=== PATIENT | female | born 1930 | race Caucasian/White ===

== ENCOUNTER 2016-09-23 20:47 | Inpatient (IN) | payer OTHER ==
[2016-09-23 21:09] VITALS: BMI 22.8
--- NOTE | 2016-09-23 21:23 | PDOC ---
History of Present Illness - General History Source: Patient Exam Limitations: No Limitations - History of Present Illness Initial Comments: 09/23/16 22:19 The patient is an 86 year old female with no significant past medical history, presenting to the Emergency Department after falling at home just prior to arrival. She reports that she was at home cleaning when she tripped over a rug and fell on her left leg. She reports left leg pain, especially at her knee. She admits that she is not able to put weight on the left leg due to pain. She denies popping or clicking in her knee during the fall. She denies swelling of the knee, and denies numbness or tingling. She denies loss of consciousness or any other injury. She denies taking any medication for the pain. The patient denies neck pain, or back pain. Patient denies headache, dizziness, or blurry vision. Patient denies nausea, vomiting, and diarrhea. Patient denies fever, chills, or cough. Past Medical Hx: hydronephrosis s/p ureteral stent <oPppy Davalos - Last Filed: 09/24/16 01:38> <Maura Love - Last Filed: 09/24/16 03:29> - General Chief Complaint: Injury Stated Complaint: FALL Time Seen by Provider: 09/23/16 21:06 Past History <Poppy Davalos - Last Filed: 09/24/16 01:38> - Past Medical History Anemia: No Asthma: No Cancer: No Cardiac Disorders: No CVA: No COPD: No CHF: No Dementia: No Diabetes: No GI Disorders: No Disorders: Yes ("UNABLE TO EMPTY BLADDER FULLY") HTN: No Hypercholesterolemia: No Liver Disease: No Seizures: No Thyroid Disease: No - Surgical History Neurologic Surgery: No - Psycho/Social/Smoking Cessation Hx Suicidal Ideation: No Smoking History: Never smoked Have you smoked in the past 12 months: No If you are a former smoker, when did you quit?: 30 YRS AGO Information on smoking cessation initiated: No Hx Alcohol Use: No Drug/Substance Use Hx: No Substance Use Type: None Hx Substance Use Treatment: No <Maura Love - Last Filed: 09/24/16 03:29> - Past Medical History Allergies/Adverse Reactions: Allergies Allergy/AdvReac Type Severity Reaction Status Date / Time No Known Allergies Allergy Verified 08/27/14 06:43 Home Medications: Ambulatory Orders Multivitamins [Multivit ([facility] Formulary)] 1 tab PO DAILY 08/26/14 Review of Systems - Review of Systems Able to Perform ROS?: Yes Comments:: 09/23/16 22:19 GENERAL/CONSTITUTIONAL: No fever or chills. No weakness. HEAD, EYES, EARS, NOSE AND THROAT: No change in vision. No ear pain or discharge. No sore throat. CARDIOVASCULAR: No chest pain or shortness of breath. RESPIRATORY: No cough, wheezing, or hemoptysis. GASTROINTESTINAL: No nausea, vomiting, diarrhea or constipation. GENITOURINARY: No dysuria, frequency, or change in urination. MUSCULOSKELETAL: + left leg pain, + left knee pain. No neck or back pain. SKIN: No rash NEUROLOGIC: No headache, vertigo, loss of consciousness, or change in strength/ sensation. ENDOCRINE: No increased thirst. No abnormal weight change. HEMATOLOGIC/LYMPHATIC: No anemia, easy bleeding, or history of blood clots. ALLERGIC/IMMUNOLOGIC: No hives or skin allergy. <Poppy Davalos - Last Filed: 09/24/16 01:38> *Physical Exam - Vital Signs Last Vital Signs Temp Pulse Resp BP Pulse Ox 151/68 96 09/23/16 21:01 09/23/16 21:01 - Physical Exam Comments: 09/23/16 22:20 GENERAL: Awake, alert, and fully oriented, in no acute distress HEAD: No signs of trauma EYES: PERRLA, EOMI, sclera anicteric, conjunctiva clear ENT: Auricles normal inspection, hearing grossly normal, nares patent, oropharynx clear without exudates. Moist mucosa NECK: Normal ROM, supple, no lymphadenopathy, JVD, or masses LUNGS: Breath sounds equal, clear to auscultation bilaterally. No wheezes, and no crackles HEART: Regular rate and rhythm, normal S1 and S2, no murmurs, rubs or gallops ABDOMEN: Soft, nontender, normoactive bowel sounds. No guarding, no rebound. No masses EXTREMITIES: Redness over left tibial plateau, no swelling. Normal range of motion, no edema. No clubbing or cyanosis. No cords NEUROLOGICAL: Cranial nerves II through XII grossly intact. Normal speech, normal gait SKIN: Warm, Dry, normal turgor, no rashes or lesions noted. <Poppy Davalos - Last Filed: 09/24/16 01:38> - Vital Signs Last Vital Signs Temp Pulse Resp BP Pulse Ox 151/68 96 09/23/16 21:01 09/23/16 21:01 <Maura Love - Last Filed: 09/24/16 03:29> ED Treatment Course - RADIOLOGY Radiology Studies Ordered: 09/23/16 23:13 Left Knee XRay As reviewed by Dr. Rashid English IMPRESSION: Questionable nondisplaced oblique tibial fracture can be further evaluated with CT 09/24/16 01:39 CT left lef As reviewed by Dr. Rashid English IMPRESSION: Nondisplaced and nondepressed oblique fracture of the proximal tibia with intra-articular extension <Poppy Davalos - Last Filed: 09/24/16 01:38> - LABORATORY CBC & Chemistry Diagram: 09/24/16 02:24 09/24/16 02:24 <Maura Love - Last Filed: 09/24/16 03:29> Medical Decision Making - Medical Decision Making 09/23/16 23:13 Patient Name: Belinda Lynch THIS IS A PRELIMINARYREPORT FROM [employer] [employer] COMPENSATION ANALYST EXAM: X-ray left knee IMAGES: 3 INDICATION: Status post fall DATE OF SERVICE: 2016-09-23 21:43:54.0 COMPARISON: none FINDINGS: Small joint effusion is noted. There may be a central oblique nondepressed tibial fracture. Calcification adjacent to the femoral condyle may be due to old MCL injury. Crescentic calcification posterior to the condyle the lateral view may be due to old trauma as well. IMPRESSION: Questionable nondisplaced oblique tibial fracture can be further evaluated with CT THIS DOCUMENT HAS BEEN ELECTRONICALLY SIGNED 09/24/16 01:39 Patient Name: Belinda Lynch THIS IS A PRELIMINARYREPORT FROM [employer]AG[facility] [employer] COMPENSATION ANALYST EXAM: CT left lobes of the without contrast IMAGES: 486 INDICATION: Evaluate proximal tibia and tibial plateau DATE OF SERVICE: 2016-09-24 00:40: 11.0 COMPARISON: none FINDINGS: There is a nondisplaced oblique fracture of the medial proximal tibia extending from the tibial spines to the medial cortex of the proximal diaphysis. There is no depression of the tibial plateau. 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 Calcification adjacent to the medial femoral condyle may be due to old MCL injury. Small joint effusion is noted. IMPRESSION: Nondisplaced and nondepressed oblique fracture of the proximal tibia with intra-articular extension 09/24/16 01:54 Pt cannot bear weight. I tried walking with her. She will require admission. Knee immobilizer in place. 09/24/16 03:11 Pt's EKG is NSR. Labs are normal. 09/24/16 03:[address] Moreno; she will be admitted to the hospitalist service. <Maura Love - Last Filed: 09/24/16 03:29> *DC/Admit/Observation/Transfer - Attestations Scribe Attestion: 09/23/16 22:20 Documentation prepared by Poppy Davalos, acting as medical educator for Maura Love MD. <Poppy Davalos - Last Filed: 09/24/16 01:38> - Discharge Dispostion Admit: Yes <Maura Love - Last Filed: 09/24/16 03:29> Diagnosis at time of Disposition: Fracture of tibia, Inability to ambulate due to knee - Discharge Dispostion Condition at time of disposition: Guarded - Referrals Referrals: Kristina Moreno MD [Primary Care Provider] -
[2016-09-23] MEDS ORDERED: IBUPROFEN 600 MG TABLET (FP) PO ONE ×2 (23:14→23:18)
[2016-09-23] MEDS ORDERED: OXYCODONE/APAP 5/325MG COMBO TABLET PO ONE (23:14)
[2016-09-23] MEDS ORDERED: OXYCODONE/APAP 5/325MG COMBO TABLET ONE (23:18)
[2016-09-24 02:28] LABS: BASOPHIL 0.6 % (0-2.0); EOSINOPHIL 0.3 % (0-4.5); MCH 28.8 pg (25.7-33.7); MCHC 33.3 g/dl (32.0-36.0); MEAN CELL VOLUME 86.7 fl (80-96); MEAN PLT VOLUME 8.1 fl (7.5-11.1); NEUTROPHILS 75.3 % (42.8-82.8); PLATELET COUNT 229 K/MM3 (134-434); RDW 14.2 % (11.6-15.6); WHITE BLOOD COUNT 11.4 K/mm3 (4.0-10.0)
[2016-09-24 02:56] LABS: ALBUMIN 3.9 g/dl (3.4-5.0); ALK PHOS 85 U/L (45-117); ANION GAP 12 (8-16); BILIRUBIN,TOTAL 0.9 mg/dL (0.2-1.0); CALCIUM 8.5 mg/dL (8.5-10.1); CO2 22 mmol/L (21-32); CREATININE 0.8 mg/dL (0.55-1.02); GLUCOSE,RANDOM 114 mg/dL (74-106); SGOT/AST 18 U/L (15-37); SGPT/ALT 26 U/L (12-78); TOT PROT 6.7 g/dl (6.4-8.2)
--- NOTE | 2016-09-24 03:52 | HP ---
<Eldon Garcia - Last Filed: 09/24/16 04:38> CHIEF COMPLAINT: Left leg fracture PCP: Dr. Kristina Moreno HISTORY OF PRESENT ILLNESS: Patient is an 86 year old female with no significant past medical history, presented to the Emergency Department s/p mechanical fall at home just prior to arrival. She reported that she was at home cleaning when she tripped over a rug and fell on her left leg. She reported left leg pain, especially right below her left knee. She noted that she is unable to put weight on her left leg due to pain. She denied swelling of the knee, numbness or tingling. She denied hitting her head, loss of consciousness, or any other injury. She denied taking any medication for the pain. ER course was notable for: (1) CT of the left knee (2) Percocet Recent Travel: None reported PAST MEDICAL HISTORY: None reported PAST SURGICAL HISTORY: None reported Social History: Smoking: Former Smoker Alcohol: Denied Drugs: Denied Family History: Allergies No Known Allergies Allergy (Verified 08/27/14 06:43) HOME MEDICATIONS: Home Medications Medication Instructions Recorded Multivitamins [Multivit ([facility] 1 tab PO DAILY 08/26/14 Formulary)] REVIEW OF SYSTEMS CONSTITUTIONAL: Absent: fever, chills, diaphoresis, generalized weakness, malaise, loss of appetite, weight change HEENT: Absent: rhinorrhea, nasal congestion, throat pain, throat swelling, difficulty swallowing, mouth swelling, ear pain, eye pain, visual changes CARDIOVASCULAR: Absent: chest pain, syncope, palpitations, irregular heart rate, lightheadedness , peripheral edema RESPIRATORY: Absent: cough, shortness of breath, dyspnea with exertion, orthopnea, wheezing, stridor, hemoptysis GASTROINTESTINAL: Absent: abdominal pain, abdominal distension, nausea, vomiting, diarrhea, constipation, melena, hematochezia GENITOURINARY: Absent: dysuria, frequency, urgency, hesitancy, hematuria, flank pain, genital pain MUSCULOSKELETAL: Present: Left lower extremity pain Absent: back pain, neck pain SKIN: Absent: rash, itching, pallor HEMATOLOGIC/IMMUNOLOGIC: Absent: easy bleeding, easy bruising, lymphadenopathy, frequent infections ENDOCRINE: Absent: unexplained weight gain, unexplained weight loss, heat intolerance, cold intolerance NEUROLOGIC: Absent: headache, focal weakness or paresthesias, dizziness, unsteady gait, seizure, mental status changes, bladder or bowel incontinence PSYCHIATRIC: Absent: anxiety, depression, suicidal or homicidal ideation, hallucinations. PHYSICAL EXAMINATION GENERAL: Awake, alert, and fully oriented, in no acute distress. HEENT: Atraumatic. Moist mucosa. Normocephalic. No sinus tenderness. No LAD. NECK: No JVD. No thyroid masses. Supple. LUNGS: Clear to auscultation bilaterally. No wheezing, rhonchi or rales. HEART: Regular rate and rhythm, normal S1 and S2, (+) murmur, peripheral pulses normal and equal bilaterally. ABDOMEN: Soft, nontender, normoactive bowel sounds. No guarding, no rebound. No Masses. MUSCULOSKELETAL: No joint tenderness or erythema. No muscle tenderness. Normal muscle bulk and tone. EXTREMITIES: (+) Left lower extremity is immobilized. 2+ DP pulses bilaterally. SKIN: Warm, dry, normal turgor, no rashes or lesions noted. IMAGING CT Left lobes without contrast Impression: Nondisplaced and nondepressed oblique fracture of the proximal tibia with intra-articular extension ASSESSMENT/PLAN: 1. Left lower extremity nondisplaced and nondepressed oblique fracture of the proximal tibia with intra-articular extension. - Ortho consult in AM - Pain control - Left knee joint immobilization 2. DVT PPX low to moderate risk -Heparin 5000 units Q12H 3. Diet; normal diet Admit to observation. Documentation prepared by Eldon Garcia, acting as electromedical equipment technician for Dr. Grace MD. <Edward Edwards - Last Filed: 09/24/16 06:58> CHIEF COMPLAINT: PCP: HISTORY OF PRESENT ILLNESS: ER course was notable for: (1) (2) (3) Recent Travel: PAST MEDICAL HISTORY: PAST SURGICAL HISTORY: Social History: Smoking: Alcohol: Drugs: Family History: Allergies No Known Allergies Allergy (Verified 08/27/14 06:43) HOME MEDICATIONS: Home Medications Medication Instructions Recorded Multivitamins [Multivit ([facility] 1 tab PO DAILY 08/26/14 Formulary)] REVIEW OF SYSTEMS CONSTITUTIONAL: Absent: fever, chills, diaphoresis, generalized weakness, malaise, loss of appetite, weight change HEENT: Absent: rhinorrhea, nasal congestion, throat pain, throat swelling, difficulty swallowing, mouth swelling, ear pain, eye pain, visual changes CARDIOVASCULAR: Absent: chest pain, syncope, palpitations, irregular heart rate, lightheadedness , peripheral edema RESPIRATORY: Absent: cough, shortness of breath, dyspnea with exertion, orthopnea, wheezing, stridor, hemoptysis GASTROINTESTINAL: Absent: abdominal pain, abdominal distension, nausea, vomiting, diarrhea, constipation, melena, hematochezia GENITOURINARY: Absent: dysuria, frequency, urgency, hesitancy, hematuria, flank pain, genital pain MUSCULOSKELETAL: Absent: myalgia, arthralgia, joint swelling, back pain, neck pain SKIN: Absent: rash, itching, pallor HEMATOLOGIC/IMMUNOLOGIC: Absent: easy bleeding, easy bruising, lymphadenopathy, frequent infections ENDOCRINE: Absent: unexplained weight gain, unexplained weight loss, heat intolerance, cold intolerance NEUROLOGIC: Absent: headache, focal weakness or paresthesias, dizziness, unsteady gait, seizure, mental status changes, bladder or bowel incontinence PSYCHIATRIC: Absent: anxiety, depression, suicidal or homicidal ideation, hallucinations. PHYSICAL EXAMINATION GENERAL: Awake, alert, and fully oriented, in no acute distress. HEAD: Normal with no signs of trauma. EYES: Pupils equal, round and reactive to light, extraocular movements intact, sclera anicteric, conjunctiva clear. No lid lag. EARS, NOSE, THROAT: Ears normal, nares patent, oropharynx clear without exudates. Moist mucous membranes. NECK: Normal range of motion, supple without lymphadenopathy, JVD, or masses. LUNGS: Breath sounds equal, clear to auscultation bilaterally. No wheezes, and no crackles. No accessory muscle use. HEART: Regular rate and rhythm, normal S1 and S2 without murmur, rub or gallop. ABDOMEN: Soft, nontender, not distended, normoactive bowel sounds, no guarding, no rebound, no masses. No hepatomegaly or splenomegaly. MUSCULOSKELETAL: Normal range of motion at all joints. No bony deformities or tenderness. No CVA tenderness. UPPER EXTREMITIES: 2+ pulses, warm, well-perfused. No cyanosis. No clubbing. Cap refill <2 seconds. No peripheral edema. LOWER EXTREMITIES: 2+ pulses, warm, well-perfused. No calf tenderness. No peripheral edema. NEUROLOGICAL: Cranial nerves II-XII intact. Normal speech. Normal gait. PSYCHIATRIC: Cooperative. Good eye contact. Appropriate mood and affect. SKIN: Warm, dry, normal turgor, no rashes or lesions noted. ASSESSMENT/PLAN: Visit type - Emergency Visit Emergency Visit: Yes ED Registration Date: 09/24/16 Care time: The patient presented to the Emergency Department on the above date and was hospitalized for further evaluation of their emergent condition. - New Patient This patient is new to me today: Yes Date on this admission: 09/24/16 - Critical Care Critical Care patient: No
--- NOTE | 2016-09-24 09:48 | CON.ORTH ---
Consult Reason for Consultation:: left tibia fx - Alcohol/Substance Use Hx Alcohol Use: No - Smoking History Smoking history: Never smoked Have you smoked in the past 12 months: No If you are a former smoker, when did you quit?: 30 YRS AGO Home Medications - Allergies Allergies/Adverse Reactions: Allergies Allergy/AdvReac Type Severity Reaction Status Date / Time No Known Allergies Allergy Verified 08/27/14 06:43 - Home Medications Home Medications: Ambulatory Orders Multivitamins [Multivit ([facility] Formulary)] 1 tab PO DAILY 08/26/14 Physical Exam for Ortho Vital Signs: Vital Signs Temperature 98.5 F 09/24/16 07:47 Pulse Rate 68 09/24/16 07:47 Respiratory Rate 18 09/24/16 07:47 Blood Pressure 122/58 09/24/16 07:47 O2 Sat by Pulse Oximetry (%) 98 09/24/16 07:47 - Lower Extremity Knee: Yes: Left, Limited ROM, Pain, Swelling, Tenderness, Other (nvi) Imaging - Results X-ray: Report Reviewed, Image Reviewed Cat Scan: Report Reviewed, Image Reviewed Assessment/Plan 86 year old female with no significant past medical history, presented to the Emergency Department s/p mechanical fall at home just prior to arrival. She reported that she was at home cleaning when she tripped over a rug and fell on her left leg. She reported left leg pain, especially right below her left knee. She noted that she is unable to put weight on her left leg due to pain. She denied hitting her head, loss of consciousness, or any other injury. a/p- Left non-displaced medial tibial plateau fx No surgical tx necessary Knee immobilizer at all times NWB LLE Ice, elevate PT eval d/w Dr. Adams
--- NOTE | 2016-09-24 10:16 | PN ---
Progress Note, Physician - Current Medication List Current Medications: Active Medications Heparin Sodium (Porcine) (Heparin -) 5,000 unit SQ BID PAM Morphine Sulfate (Morphine Injection -) 2 mg IVPUSH Q6H PRN PRN Reason: PAIN - Objective Vital Signs: Vital Signs Temperature 98.5 F 09/24/16 07:47 Pulse Rate 68 09/24/16 07:47 Respiratory Rate 18 09/24/16 07:47 Blood Pressure 122/58 09/24/16 07:47 O2 Sat by Pulse Oximetry (%) 98 09/24/16 07:47 Constitutional: Yes: Well Nourished, No Distress, Calm Eyes: Yes: WNL, Conjunctiva Clear HENT: Yes: WNL, Atraumatic, Normocephalic Neck: Yes: WNL, Supple, Trachea Midline Cardiovascular: Yes: WNL, Regular Rate and Rhythm Respiratory: Yes: WNL, Regular, CTA Bilaterally Gastrointestinal: Yes: WNL, Normal Bowel Sounds Musculoskeletal: Yes: Other (knee immobilized) Extremities: Yes: WNL Edema: No Integumentary: Yes: WNL Neurological: Yes: WNL, Alert, Oriented ...Motor Strength: WNL Psychiatric: Yes: WNL Impression/Plan Impression/Plan: 86 year old woman with no past medical history admitted for fracture of tibial plateau -ortho consult greatly appreciated; agree that no surgical intervention is needed -recs are for knee immobilization -follow up physical therapy eval -pain control -heparin for DVT proph Visit type - Emergency Visit Emergency Visit: Yes ED Registration Date: 09/25/16 Care time: The patient presented to the Emergency Department on the above date and was hospitalized for further evaluation of their emergent condition. - New Patient This patient is new to me today: Yes Date on this admission: 09/25/16 - Critical Care Critical Care patient: No
[2016-09-24] MEDS ORDERED: HEPARIN NA (PORCINE) 5,000 UNITS/ML 1ML VIAL ONE (10:29)
[2016-09-24] MEDS: HEPARIN NA (PORCINE) 5,000 UNITS/ML 1ML VIAL SQ SCH ×2 (10:40→21:24)
[2016-09-24] MEDS ORDERED: morphine CARPU-JECT 2 MG/1 ML DISP.SYRIN ONE (15:36)
[2016-09-24] MEDS: morphine CARPU-JECT 2 MG/1 ML DISP.SYRIN IVPUSH PRN ×2 (15:40→22:54)
[2016-09-24] MEDS ORDERED: INFLUENZA VACCINE 45 MCG/0.5 ML (MDV 16-17) IM ONE (17:13)
--- NOTE | 2016-09-25 00:41 | EKG ---
Test Reason : Blood Pressure : / mmHG Vent. Rate : 075 BPM Atrial Rate : 075 BPM P-R Int : 146 ms QRS Dur : 082 ms QT Int : 404 ms P-R-T Axes : 067 036 041 degrees QTc Int : 451 ms NORMAL SINUS RHYTHM NONSPECIFIC ST ABNORMALITY ABNORMAL ECG NO PREVIOUS ECGS AVAILABLE Confirmed by KADE HUMPHREY MD ([id number]) on 09/25/2016 12:41:22 AM Referred By: Confirmed By:KADE HUMPHREY MD
[2016-09-25] MEDS ORDERED: ACETAMINOPHEN 500 MG TABLET (FP) PO PRN (05:51)
[2016-09-25 08:30] LABS: MCH 29.2 pg (25.7-33.7); MCHC 33.3 g/dl (32.0-36.0); MEAN CELL VOLUME 87.7 fl (80-96); MEAN PLT VOLUME 8.8 fl (7.5-11.1); PLATELET COUNT 180 K/MM3 (134-434); RDW 14.5 % (11.6-15.6)
[2016-09-25 09:43] LABS: CALCIUM 7.8 mg/dL (8.5-10.1); CREATININE 0.7 mg/dL (0.55-1.02)
[2016-09-25] MEDS: HEPARIN NA (PORCINE) 5,000 UNITS/ML 1ML VIAL SQ SCH ×2 (10:21→22:02)
--- NOTE | 2016-09-25 11:53 | PN ---
<Ivon Thomason - Last Filed: 09/25/16 11:41> Physical Exam: SUBJECTIVE: Patient seen and examined at bed side. patient feeling well, anxious to get up and walk to do daily activity. No CP, SOB, Fevers, chills, N/V/D. OBJECTIVE: Vital Signs Period Temp Pulse Resp BP Sys/Higgins Pulse Ox Last 24 Hr 97.9 F 60 20 107/40 GENERAL: The patient is awake, alert, and fully oriented, in no acute distress. HEAD: Normal with no signs of trauma. EYES: PERRL, extraocular movements intact, sclera anicteric, conjunctiva clear. No ptosis. ENT: Ears normal, nares patent, oropharynx clear without exudates, moist mucous membranes. NECK: Trachea midline, full range of motion, supple. LUNGS: Breath sounds equal, clear to auscultation bilaterally, no wheezes, no crackles, no accessory muscle use. HEART: Regular rate and rhythm, S1, S2 without murmur, rub or gallop. ABDOMEN: Soft, nontender, nondistended, normoactive bowel sounds, no guarding, no rebound, no hepatosplenomegaly, no masses. EXTREMITIES: 2+ pulses, warm, well-perfused, no edema. NEUROLOGICAL: Cranial nerves II through XII grossly intact. Normal speech, gait not observed. PSYCH: Normal mood, normal affect. SKIN: Warm, dry, normal turgor, no rashes or lesions noted Active Medications Generic Name Dose Route Start Last Admin Trade Name Freq PRN Reason Stop Dose Admin Acetaminophen 1,000 mg 09/25/16 05:51 09/25/16 06:41 Tylenol - PO 1,000 mg Q6H PRN Administration FEVER OR PAIN Heparin Sodium (Porcine) 5,000 unit 09/24/16 10:00 09/25/16 10:21 Heparin - SQ 5,000 unit BID PAM Administration Morphine Sulfate 2 mg 09/24/16 04:40 09/24/16 22:54 Morphine Injection - IVPUSH 2 mg Q6H PRN Administration PAIN ASSESSMENT/PLAN: 86 year old woman with no past medical history admitted for fracture of tibial plateau Left non-displaced medial tibial plateau fracture: -no surgical intervention is needed at this time. -knee immobilization at all time per Ortho -physical therapy eval -pain control -Ice, elevate -heparin for DVT proph FEN regular diet oral hydration replete electrolyte as needed. Despo: Awaiting social media marketer for subacute rehab placement. <Korey Leong - Last Filed: 09/25/16 16:08> Physical Exam: ATTENDING PHYSICIAN STATEMENT I saw and evaluated the patient. I reviewed the resident's note and discussed the case with the resident. I agree with the resident's findings and plan as documented. SUBJECTIVE: seen and evaluated at the bedside OBJECTIVE: left knee immobilized ASSESSMENT AND PLAN: 86 year old woman with no past medical history admitted for fracture of tibial plateau -ortho consult greatly appreciated; agree that no surgical intervention is needed -recs are for knee immobilization -follow up physical therapy eval -pain control -heparin for DVT proph Visit type - Emergency Visit Emergency Visit: Yes ED Registration Date: 09/25/16 Care time: The patient presented to the Emergency Department on the above date and was hospitalized for further evaluation of their emergent condition. - New Patient This patient is new to me today: No - Critical Care Critical Care patient: No - Discharge Referral Referred to [facility] Med [facility] No
[2016-09-25] MEDS: morphine CARPU-JECT 2 MG/1 ML DISP.SYRIN IVPUSH PRN (16:41)
[2016-09-26 08:24] LABS: MCH 29.8 pg (25.7-33.7); MCHC 33.8 g/dl (32.0-36.0); MEAN PLT VOLUME 8.8 fl (7.5-11.1); PLATELET COUNT 182 K/MM3 (134-434); WHITE BLOOD COUNT 8.3 K/mm3 (4.0-10.0)
[2016-09-26] MEDS: HEPARIN NA (PORCINE) 5,000 UNITS/ML 1ML VIAL SQ SCH ×2 (10:18→22:42)
[2016-09-26] MEDS ORDERED: OXYCODONE/APAP 5/325MG COMBO TABLET PO PRN (12:19)
--- NOTE | 2016-09-26 13:31 | DS ---
Physical Exam: SUBJECTIVE: Patient seen and examined OBJECTIVE: Vital Signs Period Temp Pulse Resp BP Sys/Higgins Pulse Ox Last 24 Hr 97.9 F-98.8 F 73-82 16-20 112-133/53-72 96 PHYSICAL EXAM GENERAL: The patient is awake, alert, and fully oriented, in no acute distress. HEAD: Normal with no signs of trauma. EYES: PERRL, extraocular movements intact, sclera anicteric, conjunctiva clear. ENT: Ears normal, nares patent, oropharynx clear without exudates, moist mucous membranes. NECK: Trachea midline, full range of motion, supple. LUNGS: Breath sounds equal, clear to auscultation bilaterally, no wheezes, no crackles, no accessory muscle use. HEART: Regular rate and rhythm, S1, S2 without murmur, rub or gallop. ABDOMEN: Soft, nontender, nondistended, normoactive bowel sounds, no guarding, no rebound, no hepatosplenomegaly, no masses. EXTREMITIES: 2+ pulses, warm, well-perfused, no edema. NEUROLOGICAL: Cranial nerves II through XII grossly intact. Normal speech, gait not observed. PSYCH: Normal mood, normal affect. SKIN: Warm, dry, normal turgor, no rashes or lesions noted. LABS Laboratory Results - last 24 hr 09/26/16 07:00 WBC 8.3 RBC 3.46 L Hgb 10.3 L Hct 30.4 L MCV 88.0 MCHC 33.8 RDW 14.0 Plt Count 182 MPV 8.8 HOSPITAL COURSE: Date of Admission:09/25/16 Date of Discharge: 09/26/16 Discharge Summary Reason For Visit: INABILITY TO AMBULATE DUE TO KNEE FRACTURE OF TIBI Current Active Problems Inability to ambulate due to knee (Acute) Tibia fracture (Acute) Condition: Stable - Instructions Diet, Activity, Other Instructions: You are being discharged to acute rehab facility Please call and follow up with your primary care provider in one week to assess your health. Please call and follow up with orthopedic surgery dr. Bryan NOVAK 1 week. You are diagnosed with Left non-displaced medial tibial plateau fracture. No surgical treatement is necessary at this time. You must Immobilize your knee at all times. No weight baring on your left leg. Please ice and elevate. You will need physical therapy. Please take pain medication s prescribed. Please take your medication as prescribed. Please reports to the ER or the nearest ER if you have any persistent and worsening symptoms, chest pain, palpitation, fevers, chills, night sweats, Nausea, Vomiting, severe headache dizziness or loss of consciousness. Referrals: Tony Adams MD [Staff Physician] - 1 Week Kristina Moreno MD [Primary Care Provider] - 1 Week Disposition: TRANSFER ACUTE CARE/OTHER HOSP - Home Medications Comprehensive Discharge Medication List: Ambulatory Orders Glucosamine HCl/Chondr Dalton A Na [Osteo Bi-Flex Caplet] 2 each PO DAILY 09/24/16 Multivit-Min/Folic Acid/Biotin [Hair, Skin and Nails Caplet] 3 each PO DAILY Vitamin E 400 unit PO DAILY 09/24/16 Docusate Sodium [Colace Oral Solution -] 100 mg PO BID #7 ml 09/26/16 Oxycodone HCl/Acetaminophen [Percocet 5-325 mg Tablet] 1 combo PO Q6H PRN #0 tablet MDD 4 09/26/16 - Discharge Referral [facility]erred to [facility] No
[2016-09-26] MEDS: DOCUSATE SODIUM 100 MG CAPSULE (FP) PO SCH ×2 (13:59→22:19)
--- NOTE | 2016-09-26 14:37 | PN ---
Teaching Attending Note Name of Resident: Ivon Thomason ATTENDING PHYSICIAN STATEMENT I saw and evaluated the patient. I reviewed the resident's note and discussed the case with the resident. I agree with the resident's findings and plan as documented. SUBJECTIVE:states pain is controlled with morphine. pain only on movement of extremity. denies CP, SOB, fever, chills, N/V/C/D OBJECTIVE: Last Vital Signs Temp Pulse Resp BP Pulse Ox 98.7 F 76 18 133/61 96 09/26/16 14:14 09/26/16 14:14 09/26/16 10:00 09/26/16 10:00 09/26/16 09:00 General NAD CV S1 S2 RRR no murmur/rub/gallop Extremites no pedal edema, pedal pulses intact ASSESSMENT AND PLAN: 86yo F with no PMH presented to the ER and was admitted for further evaluation of their emergent condition 1. LLE tibula fracture- s/p mechanical fall. no surgical intervention at this time. pt would benefit from [facility]. pain controlled will d/c morphine and start percocet. stool softeners to prevent constipation 2. Leukocytosis- stress induced. resolved. no signs of infection 3. medically optimized for discharge to [facility]. awaiting authorization.
--- NOTE | 2016-09-26 18:01 | PN ---
Physical Exam: SUBJECTIVE: Patient seen and examined at bed side. patient feeling well. No CP, SOB, Fevers, chills, N/V/D. patient walked today with rolling walker 40 feet, with one operations manager assistant. OBJECTIVE: Vital Signs Period Temp Pulse Resp BP Sys/Higgins Pulse Ox Last 24 Hr 97.9 F-98.8 F 74-82 16-20 124-133/60-72 96 GENERAL: The patient is awake, alert, and fully oriented, in no acute distress. HEAD: Normal with no signs of trauma. EYES: PERRL, extraocular movements intact, sclera anicteric, conjunctiva clear. No ptosis. ENT: Ears normal, nares patent, oropharynx clear without exudates, moist mucous membranes. NECK: Trachea midline, full range of motion, supple. LUNGS: Breath sounds equal, clear to auscultation bilaterally, no wheezes, no crackles, no accessory muscle use. HEART: Regular rate and rhythm, S1, S2 without murmur, rub or gallop. ABDOMEN: Soft, nontender, nondistended, normoactive bowel sounds, no guarding, no rebound, no hepatosplenomegaly, no masses. EXTREMITIES: 2+ pulses, warm, well-perfused, no edema. left knee immobilized inplace,dec swelling, knee tenderness, NEUROLOGICAL: Cranial nerves II through XII grossly intact. Normal speech, gait not observed. PSYCH: Normal mood, normal affect. SKIN: Warm, dry, normal turgor, no rashes or lesions noted Laboratory Results - last 24 hr 09/26/16 07:00 WBC 8.3 RBC 3.46 L Hgb 10.3 L Hct 30.4 L MCV 88.0 MCHC 33.8 RDW 14.0 Plt Count 182 MPV 8.8 Active Medications Generic Name Dose Route Start Last Admin Trade Name Freq PRN Reason Stop Dose Admin Acetaminophen 1,000 mg 09/25/16 05:51 09/25/16 06:41 Tylenol - PO 1,000 mg Q6H PRN Administration FEVER OR PAIN Acetaminophen 325 mg 09/26/16 13:38 Tylenol - PO Q6H PRN PAIN Docusate Sodium 100 mg 09/26/16 13:30 09/26/16 13:59 Colace - PO Not Given BID PAM Heparin Sodium (Porcine) 5,000 unit 09/24/16 10:00 09/26/16 10:18 Heparin - SQ 5,000 unit BID PAM Administration Oxycodone HCl 5 mg 09/26/16 13:38 Roxicodone - PO Q6H PRN PAIN ASSESSMENT/PLAN: 86yo F with no PMH presented to the ER and was admitted for further evaluation of their emergent condition 1. LLE tibula fracture- s/p mechanical fall. no surgical intervention at this time. pt would benefit from [facility]. pain controlled will d/c morphine and start percocet. stool softeners to prevent constipation 3. medically optimized for discharge to [facility]. awaiting authorization. 86 year old woman with no past medical history admitted for fracture of tibial plateau Left non-displaced medial tibial plateau fracture: s/p mechanical fall -no surgical intervention is needed at this time. -knee immobilization at all time per Ortho -physical therapy eval -pain control -Ice, elevate -heparin for DVT proph -d/c morphine, -start percocet Leukocytosis 2/2 margination: resolved. afebrile and no signs of infection DVT prof: heparin sq FEN regular diet oral hydration replete electrolyte as needed. Despo: Awaiting social media intern for subacute rehab placement. Visit type - Emergency Visit Emergency Visit: Yes ED Registration Date: 09/25/16 Care time: The patient presented to the Emergency Department on the above date and was hospitalized for further evaluation of their emergent condition. - New Patient This patient is new to me today: No - Critical Care Critical Care patient: No
[2016-09-27] MEDS: oxyCODONE HCL 5 MG TABLET PO PRN ×2 (04:43→22:06)
[2016-09-27] MEDS: ACETAMINOPHEN 325 MG TABLET (FP) PO PRN ×2 (04:43→22:06)
--- NOTE | 2016-09-27 09:20 | PN ---
Progress Note (short form) - Note Progress Note: Ortho Pt seen and examined s/p left nondisplaced proximal medial tibial plateau fx knee immobilizer intact, +ttp, decr swelling, calf soft, nt, nvi a/p PT eval NWB LLE dvt ppx pain control d/c planning d/w Dr. Adams
[2016-09-27] MEDS ORDERED: DOCUSATE SODIUM 100 MG CAPSULE (FP) PO PRN (10:41)
[2016-09-27] MEDS: HEPARIN NA (PORCINE) 5,000 UNITS/ML 1ML VIAL SQ SCH ×2 (11:03→22:06)
--- NOTE | 2016-09-27 11:03 | DS ---
Physical Exam: SUBJECTIVE: Patient seen and examined at bed side sitting in her bed comfortably wash and her hair blow dry by nurse nutritional assistant. patient feeling well. denies fevers, chills, nausea, vomiting, Cp, sob. patient asking and taken only one Oxycodone/tylenol once a day for pain. patient able to ambulate with wheel walker with assistance. OBJECTIVE: Vital Signs Period Temp Pulse Resp BP Sys/Higgins Pulse Ox Last 24 Hr 98.7 F-99.2 F 76-78 18-20 126-132/57-67 96 PHYSICAL EXAM GENERAL: The patient is awake, alert, and fully oriented, in no acute distress. HEAD: Normal with no signs of trauma. EYES: PERRL, extraocular movements intact, sclera anicteric, conjunctiva clear. No ptosis. ENT: Ears normal, nares patent, oropharynx clear without exudates, moist mucous membranes. NECK: Trachea midline, full range of motion, supple. LUNGS: Breath sounds equal, clear to auscultation bilaterally, no wheezes, no crackles, no accessory muscle use. HEART: Regular rate and rhythm, S1, S2 without murmur, rub or gallop. ABDOMEN: Soft, nontender, nondistended, normoactive bowel sounds, no guarding, no rebound, no hepatosplenomegaly, no masses. EXTREMITIES: 2+ pulses, warm, well-perfused, no edema. left knee immobilized inplace, dec swelling, no knee tenderness, NEUROLOGICAL:Normal speech, gait not observed. PSYCH: Normal mood, normal affect. SKIN: Warm, dry, normal turgor, no rashes or lesions noted Active Medications Generic Name Dose Route Start Last Admin Trade Name Freq PRN Reason Stop Dose Admin Acetaminophen 1,000 mg 09/25/16 05:51 09/25/16 06:41 Tylenol - PO 1,000 mg Q6H PRN Administration FEVER OR PAIN Acetaminophen 325 mg 09/26/16 13:38 09/27/16 04:43 Tylenol - PO 325 mg Q6H PRN Administration PAIN Docusate Sodium 100 mg 09/27/16 10:41 Colace - PO BID PRN CONSTIPATION Heparin Sodium (Porcine) 5,000 unit 09/24/16 10:00 09/26/16 22:42 Heparin - SQ 5,000 unit BID PAM Administration Oxycodone HCl 5 mg 09/26/16 13:38 09/27/16 04:43 Roxicodone - PO 5 mg Q6H PRN Administration PAIN CT: Impression: Nondisplaced and nondepressed oblique fracture of the proximal tibia with intra-articular extension LABS HOSPITAL COURSE: Date of Admission:09/25/16 Date of Discharge: 09/27/16 Patient is an 86 year old female with no significant past medical history, presented to the Emergency Department s/p mechanical fall at home just prior to arrival. She reported that she was at home cleaning when she tripped over a rug and fell on her left leg. She reported left leg pain, especially right below her left knee. She noted that she is unable to put weight on her left leg due to pain. She denied swelling of the knee, numbness or tingling. She denied hitting her head, loss of consciousness, or any other injury. She denied taking any medication for the pain. found to have Left lower extremity nondisplaced and nondepressed oblique fracture of the proximal tibia with intra-articular extension. treateed with Pain control , Left knee joint immobilization, Pt seen and examined s/p left nondisplaced proximal medial tibial plateau fx, No weight baring left lower ext. patient currently stable, doing well, vitals stable. Will be discharge to acute rehab facility. Minutes to complete discharge: 35 Discharge Summary Reason For Visit: INABILITY TO AMBULATE DUE TO KNEE FRACTURE OF TIBI Current Active Problems Inability to ambulate due to knee (Acute) Tibia fracture (Acute) Condition: Stable - Instructions Diet, Activity, Other Instructions: You are being discharged to acute rehab facility Please call and follow up with your primary care provider in one week to assess your health. Please call and follow up with orthopedic surgery dr. Bryan NOVAK 1 week. You are diagnosed with Left non-displaced medial tibial plateau fracture. No surgical treatement is necessary at this time. You must Immobilize your knee at all times. No weight baring on your left leg. Please ice and elevate. You will need physical therapy. Please take pain medication s prescribed. Please take your medication as prescribed. Please reports to the ER or the nearest ER if you have any persistent and worsening symptoms, chest pain, palpitation, fevers, chills, night sweats, Nausea, Vomiting, severe headache dizziness or loss of consciousness. Referrals: Kristina Moreno MD [Primary Care Provider] - 1 Week Tony Adams MD [Staff Physician] - 1 Week Disposition: TRANSFER ACUTE CARE/OTHER HOSP - Home Medications Comprehensive Discharge Medication List: Ambulatory Orders Glucosamine HCl/Chondr Dalton A Na [Osteo Bi-Flex Caplet] 2 each PO DAILY 09/24/16 Multivit-Min/Folic Acid/Biotin [Hair, Skin and Nails Caplet] 3 each PO DAILY Vitamin E 400 unit PO DAILY 09/24/16 Oxycodone HCl/Acetaminophen [Percocet 5-325 mg Tablet] 1 combo PO Q6H PRN #0 tablet MDD 4 09/26/16 Docusate Sodium [Colace -] 100 mg PO BID PRN capsule 09/27/16 This patient is new to me today: Yes Date on this admission: 09/27/16 Emergency Visit: No Critical Care patient: No - Discharge Referral [facility]erred to [facility] No
[2016-09-27] MEDS: DOCUSATE SODIUM 100 MG CAPSULE (FP) PO SCH (11:33)
--- NOTE | 2016-09-27 13:18 | PN ---
Teaching Attending Note Name of Resident: Ivon Thomason ATTENDING PHYSICIAN STATEMENT I saw and evaluated the patient. I reviewed the resident's note and discussed the case with the resident. I agree with the resident's findings and plan as documented. SUBJECTIVE:states pain is controlled with medications. denies CP, SOB,fever, chills, N/V/C/D. multiple BM yesterday OBJECTIVE: Last Vital Signs Temp Pulse Resp BP Pulse Ox 97.6 F 70 16 125/67 96 09/27/16 12:24 09/27/16 12:24 09/27/16 12:24 09/27/16 12:24 09/27/16 09:00 General NAD CV S1 S2 RRR no murmur/rub/gallop Extremites no pedal edema, pedal pulses intact ASSESSMENT AND PLAN: 86yo F with no PMH presented to the ER and was admitted for further evaluation of their emergent condition 1. LLE tibula fracture- s/p mechanical fall. no surgical intervention at this time. pt would benefit from [facility]. pain controlled with percocet. stool softeners prn to prevent constipation 2. Leukocytosis- stress induced. resolved. no signs of infection 3. medically optimized for discharge to [facility]. awaiting authorization.
--- NOTE | 2016-09-27 16:54 | PN ---
Physical Exam: SUBJECTIVE: Patient seen and examined at bed side sitting in her bed comfortably wash and her hair blow dry by nurse assistant oceanographer. patient feeling well. denies fevers, chills, nausea, vomiting, Cp, sob. patient asking and taken only one Oxycodone/tylenol once a day for pain. patient able to ambulate with wheel walker with assistance. OBJECTIVE: Vital Signs Period Temp Pulse Resp BP Sys/Higgins Pulse Ox Last 24 Hr 97.6 F-99.2 F 70-82 16-20 123-132/57-67 96-96 GENERAL: The patient is awake, alert, and fully oriented, in no acute distress. HEAD: Normal with no signs of trauma. EYES: PERRL, extraocular movements intact, sclera anicteric, conjunctiva clear. No ptosis. ENT: Ears normal, nares patent, oropharynx clear without exudates, moist mucous membranes. NECK: Trachea midline, full range of motion, supple. LUNGS: Breath sounds equal, clear to auscultation bilaterally, no wheezes, no crackles, no accessory muscle use. HEART: Regular rate and rhythm, S1, S2 without murmur, rub or gallop. ABDOMEN: Soft, nontender, nondistended, normoactive bowel sounds, no guarding, no rebound, no hepatosplenomegaly, no masses. EXTREMITIES: 2+ pulses, warm, well-perfused, no edema. left knee immobilized inplace, dec swelling, no knee tenderness, NEUROLOGICAL:Normal speech, gait not observed. PSYCH: Normal mood, normal affect. SKIN: Warm, dry, normal turgor, no rashes or lesions noted Active Medications Generic Name Dose Route Start Last Admin Trade Name Freq PRN Reason Stop Dose Admin Acetaminophen 1,000 mg 09/25/16 05:51 09/25/16 06:41 Tylenol - PO 1,000 mg Q6H PRN Administration FEVER OR PAIN Acetaminophen 325 mg 09/26/16 13:38 09/27/16 04:43 Tylenol - PO 325 mg Q6H PRN Administration PAIN Docusate Sodium 100 mg 09/27/16 10:41 Colace - PO BID PRN CONSTIPATION Heparin Sodium (Porcine) 5,000 unit 09/24/16 10:00 09/27/16 11:03 Heparin - SQ 5,000 unit BID PAM Administration Oxycodone HCl 5 mg 09/26/16 13:38 09/27/16 04:43 Roxicodone - PO 5 mg Q6H PRN Administration PAIN ASSESSMENT/PLAN: 86 year old woman with no past medical history admitted for fracture of tibial plateau Left non-displaced medial tibial plateau fracture: s/p mechanical fall -no surgical intervention is needed at this time. -knee immobilization at all time per Ortho -physical therapy eval -pain control -Ice, elevate -heparin for DVT proph -d/c morphine, -continue percocet Leukocytosis 2/2 margination: resolved. afebrile and no signs of infection DVT prof: heparin sq FEN regular diet oral hydration replete electrolyte as needed. Despo: Awaiting foster care social worker for subacute rehab placement. Visit type - Emergency Visit Emergency Visit: Yes ED Registration Date: 09/25/16 Care time: The patient presented to the Emergency Department on the above date and was hospitalized for further evaluation of their emergent condition. - New Patient This patient is new to me today: No - Critical Care Critical Care patient: No
[2016-09-28] MEDS: HEPARIN NA (PORCINE) 5,000 UNITS/ML 1ML VIAL SQ SCH (11:20)
--- NOTE | 2016-09-28 14:19 | PN ---
Teaching Attending Note Name of Resident: Ivon Thomason ATTENDING PHYSICIAN STATEMENT I saw and evaluated the patient. I reviewed the resident's note and discussed the case with the resident. I agree with the resident's findings and plan as documented. SUBJECTIVE:currently asymptomatic. denies CP, SOB,fever, chills, N/V/C/D OBJECTIVE: Last Vital Signs Temp Pulse Resp BP Pulse Ox 98.0 F 77 20 139/75 97 09/28/16 10:00 09/28/16 10:00 09/28/16 10:00 09/28/16 10:09/28/16 09:00 General NAD ASSESSMENT AND PLAN: 86yo F with no PMH presented to the ER and was admitted for further evaluation of their emergent condition 1. LLE tibula fracture- s/p mechanical fall. no surgical intervention at this time. pt would benefit from [facility]. pain controlled with percocet. stool softeners prn to prevent constipation 2. Leukocytosis- stress induced. resolved. no signs of infection 3. medically optimized for discharge to [facility]. awaiting authorization.
[2016-09-28 14:47] VITALS: BP 136/69; PULSE 78; TEMP 98.3
--- NOTE | 2016-09-28 17:26 | DS ---
Physical Exam: SUBJECTIVE: Patient seen and examined at bed side sitting in her bed comfortably . patient feeling well. patient reports leg has less pain. denies fevers, chills, nausea, vomiting, Cp, sob. OBJECTIVE: Vital Signs Period Temp Pulse Resp BP Sys/Higgins Pulse Ox Last 24 Hr 97.8 F-99.3 F 77-83 18-20 114-139/62-75 96-97 PHYSICAL EXAM GENERAL: The patient is awake, alert, and fully oriented, in no acute distress. HEAD: Normal with no signs of trauma. EYES: extraocular movements intact, sclera anicteric, conjunctiva clear. No ptosis. ENT: Ears normal, nares patent, oropharynx clear without exudates, moist mucous membranes. NECK: Trachea midline, full range of motion, supple. LUNGS: Breath sounds equal, clear to auscultation bilaterally, no wheezes, no crackles, no accessory muscle use. HEART: Regular rate and rhythm, S1, S2 without murmur, rub or gallop. ABDOMEN: Soft, nontender, nondistended, normoactive bowel sounds, no guarding, no rebound, no hepatosplenomegaly, no masses. EXTREMITIES: 2+ pulses, warm, well-perfused, no edema. left knee immobilized inplace, no swelling, no knee tenderness, NEUROLOGICAL:Normal speech, gait not observed. PSYCH: Normal mood, normal affect. SKIN: Warm, dry, normal turgor, no rashes or lesions noted LABS HOSPITAL COURSE: Date of Admission:09/25/16 Date of Discharge: 09/28/16 Patient is an 86 year old female with no significant past medical history, presented to the Emergency Department s/p mechanical fall at home just prior to arrival. She reported that she was at home cleaning when she tripped over a rug and fell on her left leg. She reported left leg pain, especially right below her left knee. She noted that she is unable to put weight on her left leg due to pain. She denied swelling of the knee, numbness or tingling. She denied hitting her head, loss of consciousness, or any other injury. She denied taking any medication for the pain. found to have Left lower extremity nondisplaced and nondepressed oblique fracture of the proximal tibia with intra-articular extension. treateed with Pain control , Left knee joint immobilization, Pt seen and examined s/p left nondisplaced proximal medial tibial plateau fx, No weight baring left lower ext. patient currently stable, doing well, vitals stable. Will be discharge to acute rehab facility. Minutes to complete discharge: 35 Discharge Summary Reason For Visit: INABILITY TO AMBULATE DUE TO KNEE FRACTURE OF TIBI Current Active Problems Inability to ambulate due to knee (Acute) Tibia fracture (Acute) Condition: Stable - Instructions Diet, Activity, Other Instructions: You are being discharged to acute rehab facility Please call and follow up with your primary care provider in one week to assess your health. Please call and follow up with orthopedic surgery dr. Bryan NOVAK 1 week. You are diagnosed with Left non-displaced medial tibial plateau fracture. No surgical treatement is necessary at this time. You must Immobilize your knee at all times. No weight baring on your left leg. Please ice and elevate. You will need physical therapy. Please take pain medication s prescribed. Please take your medication as prescribed. Please reports to the ER or the nearest ER if you have any persistent and worsening symptoms, chest pain, palpitation, fevers, chills, night sweats, Nausea, Vomiting, severe headache dizziness or loss of consciousness. Referrals: Kristina Moreno MD [Primary Care Provider] - 1 Week Tony Adams MD [Staff Physician] - 1 Week Disposition: TRANSFER ACUTE CARE/OTHER HOSP - Home Medications Comprehensive Discharge Medication List: Ambulatory Orders Glucosamine HCl/Chondr Dalton A Na [Osteo Bi-Flex Caplet] 2 each PO DAILY 09/24/16 Multivit-Min/Folic Acid/Biotin [Hair, Skin and Nails Caplet] 3 each PO DAILY Vitamin E 400 unit PO DAILY 09/24/16 Oxycodone HCl/Acetaminophen [Percocet 5-325 mg Tablet] 1 combo PO Q6H PRN #0 tablet MDD 4 09/26/16 Docusate Sodium [Colace -] 100 mg PO BID PRN capsule 09/27/16 This patient is new to me today: Yes Date on this admission: 09/28/16 Emergency Visit: No Critical Care patient: No - Discharge Referral Referred to [facility] No
== END 2016-09-28 18:44 | DRG 563 ==
LOC: JER 20:47 → OBSVTOIN 09-24 03:29 → INTOOBSV 09-24 03:29 → JERBED 09-24 03:29 → UNDOADMOB 09-24 03:36 → J6S 09-24 16:29 → OBSVTOIN 09-25 09:27
PROVIDERS: ADMIT Internal Medicine; ATTEND Internal Medicine
DX: S82.235A Nondisplaced oblique fracture of shaft of left tibia, initial encounter for closed fracture (principal); D72.829 Elevated white blood cell count, unspecified; W01.0XXA Fall on same level from slipping, tripping and stumbling without subsequent striking against object, initial encounter; Y93.9 Activity, unspecified; Y92.098 Other place in other non-institutional residence as the place of occurrence of the external cause; Y99.8 Other external cause status
CPT/HCPCS: 36415; 73560-TC-LT; 73700-TC-RT; 80048; 80053; 85025; 85027; 93005; 93010; 97116-GP; 97161-GP; 99284-25; G0008; G0378; J1644; Q2037

== ENCOUNTER 2018-03-11 08:42 | Day surgery (SDC) | payer OTHER ==
[2018-03-05 14:41] VITALS: BMI 23.0
[2018-03-11 14:32] VITALS: BP 157/59; PULSE 663; TEMP 98
== END 2018-03-11 13:10 | disposition home or self-care (01) ==
LOC: JASU-ENDO 08:42
PROVIDERS: ATTEND Internal Medicine Gastroenterology
PROC: 0DJD8ZZ Inspection of Lower Intestinal Tract, Via Natural or Artificial Opening Endoscopic (ICD-10-PCS; principal; 2018-03-11 09:00)
DX: Z12.11 Encounter for screening for malignant neoplasm of colon (principal)

== ENCOUNTER 2018-08-18 01:47 | Inpatient (IN) | payer OTHER ==
--- NOTE | 2018-08-18 02:16 | PDOC ---
History of Present Illness <Kanchan Jurado - Last Filed: 08/18/18 05:27> - General History Source: Patient Exam Limitations: No Limitations - History of Present Illness Initial Comments: 08/18/18 04:34 Patient is an 88-year-old female with no medical history who presents to the ER today after a trip and fall at home. Patient states that she was walking from her bedroom to her bathroom when she tripped on the sill between rooms. She states she fell forward and landed on her surgeon. She sustained a small cut to her chin. Denies LOC however she states she does feel dizzy and semi-nauseous. Denies lightheadedness, chest pain, shortness of breath, vomiting, diarrhea, flulike symptoms and recent illness. <Tasia Farias - Last Filed: 08/26/18 21:39> - General Stated Complaint: FALL HURT CHIN Time Seen by Provider: 08/18/18 02:15 NIH Stroke Scale - Last Known Well Date/Time & Onset Date Last Known Well: 08/18/18 Time Last Known Well: 00:10 - Initial Evaluation Level of consciousness: Alert Ask patient the month and their age: Answers both correctly Ask patient to open & close eyes; make fist and let go: Obeys both correctly Best gaze (horizontal eye movement): Normal Visual field testing: No visual field loss Facial paresis (Show teeth/raise eyebrows/close eyes tight): Normal symmetrical movement Motor Function: Left Arm: Normal Motor Function: Right Arm: Normal (extends arm 90 (or 45) degrees for 10 seconds without drift Motor Function: Left Leg: Normal (extends leg 30 degrees for 5 seconds without drift) Motor Function: Right Leg: Normal (extends leg 30 degrees for 5 seconds without drift) Limb Ataxia: No ataxia Sensory(Use pinprick test arms,legs,trunk,face/side to side): Normal Best language (Describe picture, name items, read sentences): No Aphasia Dysarthria (read several words): Normal articulation Extinction and Inattention: No abnormality - Total Score NIH Stroke Scale Score: 0 <Tasia Farias - Last Filed: 08/26/18 21:39> Past History <Kanchan Jurado - Last Filed: 08/18/18 05:27> - Travel Traveled outside of the country in the last 30 days: No Close contact w/someone who was outside of country & ill: No - Past Medical History Anemia: No Asthma: No Cancer: No Cardiac Disorders: No CVA: No COPD: No CHF: No Dementia: No Diabetes: No GI Disorders: No Disorders: Yes ("UNABLE TO EMPTY BLADDER FULLY") HTN: No Hypercholesterolemia: No Liver Disease: No Seizures: No Thyroid Disease: No - Surgical History Abdominal Surgery: No Appendectomy: Yes Cardiac Surgery: No Cholecystectomy: No Lung Surgery: No Neurologic Surgery: No Orthopedic Surgery: No - Suicide/Smoking/Psychosocial Hx Smoking History: Former smoker Have you smoked in the past 12 months: No If you are a former smoker, when did you quit?: 30 YRS AGO Hx Alcohol Use: No Drug/Substance Use Hx: No Substance Use Type: None Hx Substance Use Treatment: No <ScilisavanahTasia - Last Filed: 08/26/18 21:39> - Past Medical History Allergies/Adverse Reactions: Allergies Allergy/AdvReac Type Severity Reaction Status Date / Time No Known Allergies Allergy Verified 08/18/18 02:23 Home Medications: Ambulatory Orders Glucosamine/Chondr Dalton A Sod [Osteo Bi-Flex Caplet] 2 each PO DAILY 09/24/16 Multivit-Min/Folic Acid/Biotin [Hair, Skin and Nails Caplet] 3 each PO DAILY Vitamin E 400 unit PO DAILY 09/24/16 Amlodipine Besylate [Norvasc -] 5 mg PO DAILY #30 tablet 08/19/18 Medical Supply, Miscellaneous [Blood Pressure Cuff] 1 each MC DAILY #1 each Review of Systems - Review of Systems Able to Perform ROS?: Yes Comments:: 08/18/18 04:34 CONSTITUTIONAL: Absent: fever, chills, diaphoresis, generalized weakness, malaise, loss of appetite HEENT: Absent: rhinorrhea, nasal congestion, throat pain, throat swelling, difficulty swallowing, mouth swelling, ear pain, eye pain, visual Changes CARDIOVASCULAR: Absent: chest pain, loss of consciousness, palpitations, irregular heart rate, peripheral edema RESPIRATORY: Absent: cough, shortness of breath, dyspnea with exertion, orthopnea, wheezing, stridor, hemoptysis GASTROINTESTINAL: Present: nausesa Absent: abdominal pain, abdominal distension, nausea, vomiting , diarrhea, constipation, melena, hematochezia GENITOURINARY: Absent: dysuria, frequency, urgency, hesitancy, hematuria, flank pain, genital pain MUSCULOSKELETAL: Absent: myalgia, arthralgia, joint swelling SKIN: Present: laceration to chin Absent: rash, itching, pallor HEMATOLOGIC/IMMUNOLOGIC: Absent: easy bleeding, easy bruising, lymphadenopathy, frequent infections ENDOCRINE: Absent: unexplained weight gain, unexplained weight loss, heat intolerance, cold intolerance NEUROLOGIC: Present: dizziness Absent: headache, focal weakness or paresthesias, unsteady gait, seizure, mental status changes, bladder or bowel incontinence PSYCHIATRIC: Absent: anxiety, depression, suicidal or homicidal ideation, hallucinations. Is the patient limited Malay proficient: No <Tasia Farias - Last Filed: 08/26/18 21:39> *Physical Exam - Vital Signs Last Vital Signs Temp Pulse Resp BP Pulse Ox 97.6 F 71 18 181/73 H 98 08/18/18 01:55 08/18/18 01:55 08/18/18 04:27 08/18/18 01:55 08/18/18 04:27 <Dari JuradoKanchan - Last Filed: 08/18/18 05:27> - Physical Exam Comments: 08/18/18 04:34 GENERAL: Well developed, well nourished. Awake and alert. No acute distress. HEENT: Normocephalic, atraumatic. PERRLA, EOMI. No conjunctival pallor. Sclera are non- icteric. Moist mucous membranes. Oropharynx is clear. NECK: Supple. Full ROM. No JVD. Carotid pulses 2+ and symmetric, without bruits. No thyromegaly. No lymphadenopathy. CARDIOVASCULAR: Regular rate and rhythm. No murmurs, rubs, or gallops. Distal pulses are 2+ and symmetric. PULMONARY: No evidence of respiratory distress. Lungs clear to auscultation bilaterally. No wheezing, rales or rhonchi. ABDOMINAL: Soft. Non-tender. Non-distended. No rebound or guarding. No organomegaly. Normoactive bowel sounds. MUSCULOSKELETAL Normal range of motion at all joints. No bony deformities or tenderness. No CVA tenderness. EXTREMITIES: No cyanosis. No clubbing. No edema. No calf tenderness. SKIN: 2.5 linear laceration to the bottom of the chin. Warm and dry. Normal capillary refill. No rashes. No jaundice. NEUROLOGICAL: Alert, awake, appropriate. Cranial nerves 2-12 intact. No deficits to light touch and temperature in face, upper extremities and lower extremities. No motor deficits in the in face, upper extremities and lower extremities. Normoreflexic in the upper and lower extremities. Normal speech. Toes are down- going bilaterally. Gait is normal without ataxia. PSYCHIATRIC: Cooperative. Good eye contact. Appropriate mood and affect. <Tasia Farias - Last Filed: 08/26/18 21:39> Moderate Sedation - Procedure Monitoring Vital Signs: Procedure Monitoring Vital Signs Temperature 97.6 F 08/18/18 01:55 Pulse Rate 71 08/18/18 01:55 Respiratory Rate 18 08/18/18 04:27 Blood Pressure 181/73 H 08/18/18 01:55 O2 Sat by Pulse Oximetry (%) 98 08/18/18 04:27 <Kanchan Jurado - Last Filed: 08/18/18 05:27> Procedures - Laceration/Wound Repair Lower Face Wound Length: to 2.5 cm Wound Explored: clean Wound's Depth, Shape: linear Anesthesia: 1% Lidocaine Wound Repaired With: Sutures Suture Size/Type: 5:0, other (monocryl) Number of Sutures: 5 Progress: Patient tolerated procedure well <Kanchan Jurado - Last Filed: 08/18/18 05:27> ED Treatment Course - LABORATORY CBC & Chemistry Diagram: 08/18/18 03:33 08/18/18 03:33 - ADDITIONAL ORDERS Additional order review: Laboratory Results 08/18/18 08/18/18 08/18/18 03:33 03:33 03:33 PT with INR 11.00 INR 0.93 Sodium 140 Potassium 3.9 Chloride 107 Carbon Dioxide 25 Anion Gap 8 BUN 19 H Creatinine 0.8 Creat Clearance w eGFR > 60 Random Glucose 110 H Calcium 9.1 Total Bilirubin 0.8 AST 25 ALT 27 Alkaline Phosphatase 83 Creatine Kinase 167 Creatine Kinase Index 2.5 CK-MB (CK-2) 4.2 H Troponin I < 0.02 Total Protein 7.8 Albumin 4.3 Urine Color Urine Appearance Urine pH Ur Specific [place] Urine Protein Urine Glucose (UA) Urine Ketones Urine Blood Urine Nitrite Urine Bilirubin Urine Urobilinogen Ur Leukocyte Esterase Urine WBC (Auto) Urine RBC (Auto) Ur Epithelial Cells 08/18/18 02:40 PT with INR INR Sodium Potassium Chloride Carbon Dioxide Anion Gap BUN Creatinine Creat Clearance w eGFR Random Glucose Calcium Total Bilirubin AST ALT Alkaline Phosphatase Creatine Kinase Creatine Kinase Index CK-MB (CK-2) Troponin I Total Protein Albumin Urine Color Straw Urine Appearance Clear Urine pH 7.0 Ur Specific [place] 1.010 Urine Protein Negative Urine Glucose (UA) Negative Urine Ketones Negative Urine Blood 1+ H Urine Nitrite Negative Urine Bilirubin Negative Urine Urobilinogen Negative Ur Leukocyte Esterase 2+ H Urine WBC (Auto) 97 Urine RBC (Auto) 16 Ur Epithelial Cells Rare 08/18/18 03:33 RBC 4.44 MCV 86.2 MCHC 34.5 RDW 13.9 MPV 7.7 D Neutrophils % 78.0 Lymphocytes % 14.4 Monocytes % 6.1 Eosinophils % 0.9 D Basophils % 0.6 - Medications Given in the ED: ED Medications Discontinued Medications Generic Name Dose Route Start Last Admin Trade Name Freq PRN Reason Stop Dose Admin Ceftriaxone Sodium 1,000 mg/ 50 mls @ 100 mls/hr 08/18/18 03:26 08/18/18 04: 02 Dextrose IVPB 08/18/18 03:55 100 mls/hr ONCE ONE Administration <Kanchan Jurado - Last Filed: 08/18/18 05:27> - LABORATORY CBC & Chemistry Diagram: 08/19/18 05:15 08/18/18 15:14 <Tasia Farias - Last Filed: 08/26/18 21:39> Medical Decision Making - Medical Decision Making 08/18/18 04:48 Patient is an 88-year-old female with no medical history who presents to the ER after a trip and fall today. On exam patient with a 3 cm laceration to her chin. Wound repair by Dr. Jurado. Patient received head CT due to trip and fall. Call received from imaging condominium manager to report a left parietal so small subarachnoid hemorrhage. NIH stroke scale is 0 at this time. Pt is not on AC. No aspirin use Spoke with Dr. Arnold for neurosurgery states it is most likely traumatic and recommends observation in ICU for 24 hours with repeat scan on Sunday. Patient with UTI on labs. One dose of IV ceftriaxone given in the ER. Admit to hospitalist and ICU. <Tasia Farias - Last Filed: 08/26/18 21:39> *DC/Admit/Observation/Transfer <Kanchan Jurado - Last Filed: 08/18/18 05:27> - Discharge Dispostion Decision to Admit order: Yes <Tasia Farias - Last Filed: 08/26/18 21:39> Diagnosis at time of Disposition: SAH (subarachnoid hemorrhage), Fall, Laceration - Discharge Dispostion Disposition: HOME Condition at time of disposition: Stable
[2018-08-18 02:54] LABS: URINE APPEARANCE CLEAR; URINE BILIRUBIN NEGATIVE (<2.0 mg/dL); URINE COLOR STRAW; URINE GLUCOSE (UA) NEGATIVE (NEGATIVE); URINE KETONE NEGATIVE (NEGATIVE); URINE LEUK ESTERASE 2+ (NEGATIVE); URINE NITRITE NEGATIVE (NEGATIVE); URINE PROTEIN NEGATIVE (NEGATIVE); URINE UROBILINOGEN NEGATIVE mg/dL (0.2-1.0)
[2018-08-18 03:04] LABS: EPI CELLS RARE /HPF (FEW)
[2018-08-18] MEDS ORDERED: CEFTRIAXONE 1,000 MG in DEXTROSE 5%-WATER - 50 ML IVPB ONE (03:26)
[2018-08-18] MEDS ORDERED: SODIUM CHLORIDE 1,000 ML IV SCH (04:00)
[2018-08-18 04:08] LABS: BASO % 0.6 % (0-2.0); EOS % 0.9 % (0-4.5); HEMATOCRIT 38.3 % (32.4-45.2); HEMOGLOBIN 13.2 GM/dL (10.7-15.3); LYMPH % 14.4 % (8-40); MCH 29.8 pg (25.7-33.7); MCHC 34.5 g/dl (32.0-36.0); MEAN CELL VOLUME 86.2 fl (80-96); MEAN PLT VOLUME 7.7 fl (7.5-11.1); MONO % 6.1 % (3.8-10.2); PLATELET COUNT 272 K/MM3 (134-434); RBC 4.44 M/mm3 (3.60-5.2); RDW 13.9 % (11.6-15.6); WHITE BLOOD COUNT 12.2 K/mm3 (4.0-10.0)
[2018-08-18 04:21] LABS: INR 0.93 (0.83-1.09)
[2018-08-18 04:29] LABS: ALBUMIN 4.3 g/dl (3.4-5.0); ALK PHOS 83 U/L (45-117); ANION GAP 8 MMOL/L (8-16); BILIRUBIN,TOTAL 0.8 mg/dL (0.2-1); BLOOD UREA NITROGEN 19 mg/dL (7-18); CALCIUM 9.1 mg/dL (8.5-10.1); CHLORIDE 107 mmol/L (98-107); CO2 25 mmol/L (21-32); CREATININE 0.8 mg/dL (0.55-1.3); GLUCOSE,RANDOM 110 mg/dL (74-106); POTASSIUM 3.9 mmol/L (3.5-5.1); SGOT/AST 25 U/L (15-37); SGPT/ALT 27 U/L (13-61); SODIUM 140 mmol/L (136-145); TOT PROT 7.8 g/dl (6.4-8.2)
[2018-08-18] MEDS ORDERED: DIPHTH,PERTUSS(ACELL),TET 0.5 ML DISP.SYRIN IM ONE ×2 (05:38→06:31)
--- NOTE | 2018-08-18 05:39 | HP ---
CHIEF COMPLAINT: fall, chin laceration PCP: HISTORY OF PRESENT ILLNESS: 88-year-old woman with no significant pmhx fell at home on 08/17 and hit her chin on floor, denied any LOC. She noted that she felt slightly dizzy and lightheaded after her fall. Head CT showed small right SAH hemorrhage. Dr. Noe was called and recommended observation in ICU. ER course was notable for: (1) head ct (2) tdap (3) chin sutures Recent Travel: none PAST MEDICAL HISTORY: none PAST SURGICAL HISTORY: mouth plastic surgery x2 Social History: Smoking: no Alcohol: no Drugs: no Family History: no Allergies No Known Allergies Allergy (Verified 08/18/18 02:23) HOME MEDICATIONS: Home Medications Medication Instructions Recorded Glucosamine/Chondr Dalton A Sod [Osteo 2 each PO DAILY 09/24/16 Bi-Flex Caplet] Multivit-Min/Folic Acid/Biotin 3 each PO DAILY 09/24/16 [Hair, Skin and Nails Caplet] Vitamin E 400 unit PO DAILY 09/24/16 Ibandronate Sodium 150 mg PO MONTHLY 03/11/18 REVIEW OF SYSTEMS CONSTITUTIONAL: Absent: fever, chills, diaphoresis, generalized weakness, malaise, loss of appetite, weight change HEENT: Absent: rhinorrhea, nasal congestion, throat pain, throat swelling, difficulty swallowing, mouth swelling, ear pain, eye pain, visual changes CARDIOVASCULAR: Absent: chest pain, syncope, palpitations, irregular heart rate, lightheadedness , peripheral edema RESPIRATORY: Absent: cough, shortness of breath, dyspnea with exertion, orthopnea, wheezing, stridor, hemoptysis GASTROINTESTINAL: Absent: abdominal pain, abdominal distension, vomiting, diarrhea, constipation, melena, hematochezia present- nausea GENITOURINARY: Absent: dysuria, frequency, urgency, hesitancy, hematuria, flank pain, genital pain MUSCULOSKELETAL: Absent: myalgia, arthralgia, joint swelling, back pain, neck pain SKIN: Absent: rash, itching, pallor HEMATOLOGIC/IMMUNOLOGIC: Absent: easy bleeding, easy bruising, lymphadenopathy, frequent infections ENDOCRINE: Absent: unexplained weight gain, unexplained weight loss, heat intolerance, cold intolerance NEUROLOGIC: Absent focal weakness or paresthesias, dizziness, unsteady gait, seizure, mental status changes, bladder or bowel incontinence present- : headache, PSYCHIATRIC: Absent: anxiety, depression, suicidal or homicidal ideation, hallucinations. PHYSICAL EXAMINATION Vital Signs - 24 hr 08/18/18 08/18/18 08/18/18 01:55 03:48 04:27 Temperature 97.6 F Pulse Rate 71 Respiratory 18 18 Rate Blood Pressure 181/73 H O2 Sat by Pulse 97 98 98 Oximetry (%) GENERAL: Awake, alert, and fully oriented, in no acute distress, frail, elderly HEAD: Normal with no signs of trauma. EYES: Pupils equal, round and reactive to light, extraocular movements intact, sclera anicteric, conjunctiva clear. No lid lag. EARS, NOSE, THROAT: Ears normal, nares patent, oropharynx clear without exudates. Moist mucous membranes. NECK: Normal range of motion, supple without lymphadenopathy, JVD, or masses. LUNGS: Breath sounds equal, clear to auscultation bilaterally. No wheezes, and no crackles. No accessory muscle use. HEART: Regular rate and rhythm, normal S1 and S2 without murmur, rub or gallop. ABDOMEN: Soft, nontender, not distended, normoactive bowel sounds, no guarding, no rebound, no masses. MUSCULOSKELETAL: Normal range of motion at all joints. No bony deformities or tenderness. No CVA tenderness. UPPER EXTREMITIES: 2+ pulses, warm, well-perfused. No cyanosis. No clubbing. No peripheral edema. LOWER EXTREMITIES: 2+ pulses, warm, well-perfused. No calf tenderness. No peripheral edema. NEUROLOGICAL: Cranial nerves II-XII intact. Normal speech. No focal neuro deficits PSYCHIATRIC: Cooperative. Good eye contact. Appropriate mood and affect. SKIN: Warm, dry, normal turgor, no rashes or lesions noted, normal capillary refill. Laboratory Results - last 24 hr 08/18/18 08/18/18 08/18/18 02:40 03:33 03:33 WBC 12.2 H RBC 4.44 Hgb 13.2 Hct 38.3 D MCV 86.2 MCH 29.8 MCHC 34.5 RDW 13.9 Plt Count 272 D MPV 7.7 D Absolute Neuts (auto) 9.6 H Neutrophils % 78.0 Lymphocytes % 14.4 Monocytes % 6.1 Eosinophils % 0.9 D Basophils % 0.6 Nucleated RBC % 0 PT with INR 11.00 INR 0.93 Sodium Potassium Chloride Carbon Dioxide Anion Gap BUN Creatinine Creat Clearance w eGFR Random Glucose Calcium Total Bilirubin AST ALT Alkaline Phosphatase Creatine Kinase Creatine Kinase Index CK-MB (CK-2) Troponin I Total Protein Albumin Urine Color Straw Urine Appearance Clear Urine pH 7.0 Ur Specific [place] 1.010 Urine Protein Negative Urine Glucose (UA) Negative Urine Ketones Negative Urine Blood 1+ H Urine Nitrite Negative Urine Bilirubin Negative Urine Urobilinogen Negative Ur Leukocyte Esterase 2+ H Urine WBC (Auto) 97 Urine RBC (Auto) 16 Ur Epithelial Cells Rare 08/18/18 08/18/18 03:33 03:33 WBC RBC Hgb Hct MCV MCH MCHC RDW Plt Count MPV Absolute Neuts (auto) Neutrophils % Lymphocytes % Monocytes % Eosinophils % Basophils % Nucleated RBC % PT with INR INR Sodium 140 Potassium 3.9 Chloride 107 Carbon Dioxide 25 Anion Gap 8 BUN 19 H Creatinine 0.8 Creat Clearance w eGFR > 60 Random Glucose 110 H Calcium 9.1 Total Bilirubin 0.8 AST 25 ALT 27 Alkaline Phosphatase 83 Creatine Kinase 167 Creatine Kinase Index 2.5 CK-MB (CK-2) 4.2 H Troponin I < 0.02 Total Protein 7.8 Albumin 4.3 Urine Color Urine Appearance Urine pH Ur Specific [place] Urine Protein Urine Glucose (UA) Urine Ketones Urine Blood Urine Nitrite Urine Bilirubin Urine Urobilinogen Ur Leukocyte Esterase Urine WBC (Auto) Urine RBC (Auto) Ur Epithelial Cells head CT reviewed ASSESSMENT/PLAN: #88yo woman with small right parietal SAH, acute. Case discussed with neurosurgery and agreed to observe patient in ICU for 24hrs and repeat imaging of head. Patient otherwise with no neuro deficits. -admit to ICU -NPO for now -fingersticks to monitor glucose -tylenol prn for headache -neurochecks q4hrs -avoid heparin or antiplatelet agents -tdap for chin laceration -ekg -zofran prn for nausea -neurosurgery consult -will repeat CT of head once in ICU -ICDs for DVT ppx Visit type - Emergency Visit Emergency Visit: Yes ED Registration Date: 08/18/18 Care time: The patient presented to the Emergency Department on the above date and was hospitalized for further evaluation of their emergent condition. - New Patient This patient is new to me today: Yes Date on this admission: 08/18/18 - Critical Care Critical Care patient: No
[2018-08-18] MEDS ORDERED: VALSARTAN 40 MG TABLET (FP) PO ONE (05:41)
[2018-08-18] MEDS ORDERED: ACETAMINOPHEN 500 MG TABLET (FP) PO PRN (06:25)
[2018-08-18] MEDS ORDERED: ONDANSETRON 4 MG/2 ML VIAL IVPB PRN (06:27)
[2018-08-18] MEDS ORDERED: VALSARTAN 80 MG TABLET (UD) ONE (06:31)
[2018-08-18 07:48] VITALS: BMI 24.7
--- NOTE | 2018-08-18 08:43 | EKG ---
Test Reason : Blood Pressure : / mmHG Vent. Rate : 067 BPM Atrial Rate : 067 BPM P-R Int : 158 ms QRS Dur : 084 ms QT Int : 434 ms P-R-T Axes : 065 043 047 degrees QTc Int : 458 ms POOR DATA QUALITY, INTERPRETATION MAY BE ADVERSELY AFFECTED NORMAL SINUS RHYTHM NORMAL ECG WHEN COMPARED WITH ECG OF 24-SEP-2016 02:15, NO SIGNIFICANT CHANGE WAS FOUND Confirmed by ODESSA CHAVEZ, AMRIT ([id number]) on 08/18/2018 8:43:41 AM Referred By: Confirmed By:AMRIT SAXENA MD
[2018-08-18] MEDS: MUPIROCIN 2% TOPICAL OINTMENT FOR DECOLONIZATION NS SCH ×2 (09:34→22:21)
--- NOTE | 2018-08-18 10:24 | CONSULT ---
Consult Consult Specialty:: Critical care med Reason for Consultation:: SAH - History of Present Illness Chief Complaint: s/p fail found to have SAH History of Present Illness: This is a 88yo woman w/ no PMH. no home meds who tripped and fell prompting ED visit, CT head showed SAH. Patient admitted to ICU for frequent neuro exams. In the ICU patient awake, alert and w/o distress or neuro deficit - History Source History Provided By: Patient, Medical Record - Past Medical History ...: No - Alcohol/Substance Use Hx Alcohol Use: No - Smoking History Smoking history: Former smoker Have you smoked in the past 12 months: No If you are a former smoker, when did you quit?: 30 YRS AGO Home Medications - Allergies Allergies/Adverse Reactions: Allergies Allergy/AdvReac Type Severity Reaction Status Date / Time No Known Allergies Allergy Verified 08/18/18 02:23 - Home Medications Home Medications: Ambulatory Orders Glucosamine/Chondr Dalton A Sod [Osteo Bi-Flex Caplet] 2 each PO DAILY 09/24/16 Multivit-Min/Folic Acid/Biotin [Hair, Skin and Nails Caplet] 3 each PO DAILY Vitamin E 400 unit PO DAILY 09/24/16 Ibandronate Sodium 150 mg PO MONTHLY 03/11/18 Review of Systems - Review of Systems Constitutional: reports: No Symptoms Neck: reports: No Symptoms Cardiovascular: reports: No Symptoms Respiratory: reports: No Symptoms Gastrointestinal: reports: No Symptoms Physical Exam Vital Signs: Vital Signs Temperature 97.7 F 08/18/18 07:39 Pulse Rate 69 08/18/18 08:00 Respiratory Rate 20 08/18/18 08:00 Blood Pressure 166/57 L 08/18/18 08:00 O2 Sat by Pulse Oximetry (%) 96 08/18/18 08:52 Current Medications Acetaminophen (Tylenol -) 500 mg PO Q6H PRN PRN Reason: HEADACHE Chlorhexidine Gluconate (Hibiclens For Decolonization -) 1 applic TP HS PAM Sodium Chloride (Normal Saline -) 1,000 mls @ 42 mls/hr IV ASDIR PAM Last Admin: 08/18/18 04:02 Dose: 42 mls/hr Mupirocin (Bactroban Ointment (For Decolonization) -) 1 applic NS BID PAM Stop: 08/23/18 09:59 Last Admin: 08/18/18 09:34 Dose: 1 applic Ondansetron HCl (Zofran Injection) 4 mg IVPB Q6H PRN PRN Reason: NAUSEA Constitutional: Yes: Well Nourished, No Distress, Calm Eyes: Yes: Conjunctiva Clear, EOM Intact HENT: Yes: Normocephalic, Other (chin w/ sutures: c/d/i) Cardiovascular: Yes: Regular Rate and Rhythm, S1, S2 Respiratory: Yes: CTA Bilaterally Gastrointestinal: Yes: Normal Bowel Sounds, Soft ...Rectal Exam: Yes: Deferred Musculoskeletal: Yes: WNL Edema: No Neurological: Yes: Alert, Oriented, Cran Nerves II-XII Intact ...Motor Strength: WNL Psychiatric: Yes: Alert, Oriented Labs: CBC, BMP 08/18/18 03:33 08/18/18 03:33 Imaging - Results Cat Scan: Report Reviewed, Image Reviewed Problem List - Problems (1) Fall Code(s): W19.XXXA - UNSPECIFIED FALL, INITIAL ENCOUNTER Qualifiers: Encounter type: initial encounter Qualified Code(s): W19.XXXA - Unspecified fall, initial encounter (2) Laceration Code(s): NDL4610 - (3) SAH (subarachnoid hemorrhage) Code(s): I60.9 - NONTRAUMATIC SUBARACHNOID HEMORRHAGE, UNSPECIFIED Assessment/Plan - frequent Neuro checks -swallow eval and advance diet -DVT prophy w/ SCD -no indication for GI prophylaxis -early PT/Ot eval -repeat CT head tomorrow cont ICU monitoring Boerem ACNP Pulm/CCM CCT: 35m
--- NOTE | 2018-08-18 11:56 | PN ---
Progress Note (short form) - Note Progress Note: Subjective: no PATEL , weakness, numbness, visual changes or any complaints Objective: Vital Signs: Last Vital Signs Temp Pulse Resp BP Pulse Ox 97.8 F 60 13 149/63 96 08/18/18 10:00 08/18/18 10:00 08/18/18 10:00 08/18/18 10:00 08/18/18 08:52 Laboratory Results - last 24 hr 08/18/18 08/18/18 08/18/18 02:40 03:33 03:33 WBC 12.2 H RBC 4.44 Hgb 13.2 Hct 38.3 D MCV 86.2 MCH 29.8 MCHC 34.5 RDW 13.9 Plt Count 272 D MPV 7.7 D Absolute Neuts (auto) 9.6 H Neutrophils % 78.0 Lymphocytes % 14.4 Monocytes % 6.1 Eosinophils % 0.9 D Basophils % 0.6 Nucleated RBC % 0 PT with INR 11.00 INR 0.93 Sodium Potassium Chloride Carbon Dioxide Anion Gap BUN Creatinine Creat Clearance w eGFR Random Glucose Calcium Total Bilirubin AST ALT Alkaline Phosphatase Creatine Kinase Creatine Kinase Index CK-MB (CK-2) Troponin I Total Protein Albumin Urine Color Straw Urine Appearance Clear Urine pH 7.0 Ur Specific [place] 1.010 Urine Protein Negative Urine Glucose (UA) Negative Urine Ketones Negative Urine Blood 1+ H Urine Nitrite Negative Urine Bilirubin Negative Urine Urobilinogen Negative Ur Leukocyte Esterase 2+ H Urine WBC (Auto) 97 Urine RBC (Auto) 16 Ur Epithelial Cells Rare Blood Type Antibody Screen 08/18/18 08/18/18 08/18/18 03:33 03:33 03:33 WBC RBC Hgb Hct MCV MCH MCHC RDW Plt Count MPV Absolute Neuts (auto) Neutrophils % Lymphocytes % Monocytes % Eosinophils % Basophils % Nucleated RBC % PT with INR INR Sodium 140 Potassium 3.9 Chloride 107 Carbon Dioxide 25 Anion Gap 8 BUN 19 H Creatinine 0.8 Creat Clearance w eGFR > 60 Random Glucose 110 H Calcium 9.1 Total Bilirubin 0.8 AST 25 ALT 27 Alkaline Phosphatase 83 Creatine Kinase 167 Creatine Kinase Index 2.5 CK-MB (CK-2) 4.2 H Troponin I < 0.02 Total Protein 7.8 Albumin 4.3 Urine Color Urine Appearance Urine pH Ur Specific [place] Urine Protein Urine Glucose (UA) Urine Ketones Urine Blood Urine Nitrite Urine Bilirubin Urine Urobilinogen Ur Leukocyte Esterase Urine WBC (Auto) Urine RBC (Auto) Ur Epithelial Cells Blood Type A POSITIVE Antibody Screen Negative 08/18/18 09:50 WBC RBC Hgb Hct MCV MCH MCHC RDW Plt Count MPV Absolute Neuts (auto) Neutrophils % Lymphocytes % Monocytes % Eosinophils % Basophils % Nucleated RBC % PT with INR INR Sodium Potassium Chloride Carbon Dioxide Anion Gap BUN Creatinine Creat Clearance w eGFR Random Glucose Calcium Total Bilirubin AST ALT Alkaline Phosphatase Creatine Kinase Creatine Kinase Index CK-MB (CK-2) Troponin I Total Protein Albumin Urine Color Urine Appearance Urine pH Ur Specific [place] Urine Protein Urine Glucose (UA) Urine Ketones Urine Blood Urine Nitrite Urine Bilirubin Urine Urobilinogen Ur Leukocyte Esterase Urine WBC (Auto) Urine RBC (Auto) Ur Epithelial Cells Blood Type A POSITIVE Antibody Screen PE: NAD . CV: RRR, no MRg lungs : CTAB Abd: soft, NT, ND , NL BS Ext : no edema Neuro : EOMI, no facial droop, orund equal pupils, reactive to light . no facial droop. strength 5/5 in upper and lower extremities proximally and distally. sensatio to light touch nl. reflexes 2+ knee ejrk and biceps b/l A/P very pleasant 88 y/o lady with no sig PMH who presneted after a mechanical fall and was found to have R SAH 1- Mechanical fall 2- Acute R SAH . - final read of CT pending - neuro exam. - keep blood pressure < 140/90 - add norvasc fo r HTN - repeat CT in am - neuro sx eval pending 3- HTn urgency: add norvasc. 4- Pyuria: no dysuria, or abd pain or flank pain. mild leukocytosis might be reactive. hold off Abx . ICU monitoring Visit type - Emergency Visit Emergency Visit: Yes ED Registration Date: 08/18/18 Care time: The patient presented to the Emergency Department on the above date and was hospitalized for further evaluation of their emergent condition. - New Patient This patient is new to me today: Yes Date on this admission: 08/18/18 - Critical Care Critical Care patient: No
[2018-08-18 15:29] LABS: HEMATOCRIT 39.2 % (32.4-45.2); HEMOGLOBIN 13.4 GM/dL (10.7-15.3); MCH 29.8 pg (25.7-33.7); MCHC 34.3 g/dl (32.0-36.0); MEAN PLT VOLUME 8.2 fl (7.5-11.1); PLATELET COUNT 268 K/MM3 (134-434); RBC 4.51 M/mm3 (3.60-5.2); RDW 13.8 % (11.6-15.6); WHITE BLOOD COUNT 8.3 K/mm3 (4.0-10.0)
[2018-08-18 15:52] LABS: ANION GAP 6 MMOL/L (8-16); BLOOD UREA NITROGEN 14 mg/dL (7-18); CHLORIDE 109 mmol/L (98-107); CO2 26 mmol/L (21-32); CREATININE 0.8 mg/dL (0.55-1.3); GLUCOSE,RANDOM 102 mg/dL (74-106); POTASSIUM 3.8 mmol/L (3.5-5.1); SODIUM 141 mmol/L (136-145)
[2018-08-18] MEDS ORDERED: hydrALAZINE HCL 20 MG/ML VIAL IVPUSH PRN (16:54)
[2018-08-18] MEDS ORDERED: CHLORHEXIDINE GLUCONATE 4% CLEANSER FOR DECOLONIZATION TP SCH (22:00)
--- NOTE | 2018-08-18 22:26 | CONSULT ---
Consult - text type - Consultation Consultation Note: NEUROSURGERY CONSULTATION Patient is a 88 year old female who tripped on a carpet and fell striking her head. No Loss of consciousness. Head CT shows a small amount of Right posterior parietal traumatic subarachnoid blood associated with a small contusion. On Neurological Examination, patient is wide awake, alert and oriented x 3. Moving all extremities with full power. Plan for 24 hours ICU observation and repeat Head CT in AM. Barring interval change in exam or worsening of scan, patient will be ready for discharge soon afterwards.
[2018-08-19 06:06] LABS: BASO % 0.9 % (0-2.0); EOS % 2.4 % (0-4.5); HEMATOCRIT 38.2 % (32.4-45.2); HEMOGLOBIN 12.1 GM/dL (10.7-15.3); LYMPH % 34.1 % (8-40); MCH 28.3 pg (25.7-33.7); MCHC 31.8 g/dl (32.0-36.0); MEAN PLT VOLUME 8.2 fl (7.5-11.1); MONO % 10.5 % (3.8-10.2); NEUT % 52.1 % (42.8-82.8); PLATELET COUNT 245 K/MM3 (134-434); RBC 4.29 M/mm3 (3.60-5.2); WHITE BLOOD COUNT 6.8 K/mm3 (4.0-10.0)
[2018-08-19] MEDS: MUPIROCIN 2% TOPICAL OINTMENT FOR DECOLONIZATION NS SCH (09:03)
[2018-08-19] MEDS ORDERED: amLODIPine BESYLATE 5 MG TABLET (FP) PO SCH (10:00)
[2018-08-19 10:32] VITALS: TEMP 98.3
[2018-08-19 12:37] VITALS: BP 165/69; PULSE 69
--- NOTE | 2018-08-19 12:43 | PN ---
Teaching Attending Note Name of Resident: Kanchan Jurado ATTENDING PHYSICIAN STATEMENT I saw and evaluated the patient. I reviewed the resident's note and discussed the case with the resident. I agree with the resident's findings and plan as documented. SUBJECTIVE: Patient seen and examined in the ICU. Awake and alert. No PATEL, dizziness, BOV, etc. Intake & Output 08/16/18 08/17/18 08/18/18 08/19/18 23:59 23:59 23:59 23:59 Intake Total 624 220 Balance 624 220 Weight 127 lb 127 lb 1.6 oz Last Vital Signs Temp Pulse Resp BP Pulse Ox 98.3 F 69 16 165/69 96 08/19/18 10:00 08/19/18 12:00 08/19/18 12:00 08/19/18 12:00 08/19/18 08:03 Active Medications Acetaminophen (Tylenol -) 500 mg PO Q6H PRN PRN Reason: HEADACHE Amlodipine Besylate (Norvasc -) 5 mg PO DAILY [facility] Last Admin: 08/19/18 09:03 Dose: 5 mg Chlorhexidine Gluconate (Hibiclens For Decolonization -) 1 applic TP HS [facility] Last Admin: 08/18/18 22:21 Dose: 1 applic Hydralazine HCl (Apresoline Injection -) 10 mg IVPUSH Q6H PRN PRN Reason: SBP >180 Mupirocin (Bactroban Ointment (For Decolonization) -) 1 applic NS BID [facility] Stop: 08/23/18 09:59 Last Admin: 08/19/18 09:03 Dose: 1 applic Ondansetron HCl (Zofran Injection) 4 mg IVPB Q6H PRN PRN Reason: NAUSEA Constitutional: Yes: Well Nourished, No Distress, Calm Eyes: Yes: Conjunctiva Clear, EOM Intact HENT: Yes: Normocephalic, Other (chin w/ sutures: c/d/i) Cardiovascular: Yes: Regular Rate and Rhythm, S1, S2 Respiratory: Yes: CTA Bilaterally Gastrointestinal: Yes: Normal Bowel Sounds, Soft ...Rectal Exam: Yes: Deferred Musculoskeletal: Yes: WNL Edema: No Neurological: Yes: Alert, Oriented, Cran Nerves II-XII Intact ...Motor Strength: WNL Psychiatric: Yes: Alert, Oriented Labs: Laboratory Results - last 24 hr 08/18/18 08/18/18 08/19/18 15:14 15:14 05:15 WBC 8.3 6.8 RBC 4.51 4.29 Hgb 13.4 12.1 Hct 39.2 38.2 MCV 87.0 89.0 MCH 29.8 28.3 MCHC 34.3 31.8 L RDW 13.8 14.0 Plt Count 268 245 MPV 8.2 8.2 Absolute Neuts (auto) 3.6 Neutrophils % 52.1 D Lymphocytes % 34.1 D Monocytes % 10.5 H Eosinophils % 2.4 D Basophils % 0.9 Nucleated RBC % 0 Sodium 141 Potassium 3.8 Chloride 109 H Carbon Dioxide 26 Anion Gap 6 L BUN 14 Creatinine 0.8 Creat Clearance w eGFR > 60 Random Glucose 102 Calcium 9.0 Problem List - Problems (1) Fall Code(s): W19.XXXA - UNSPECIFIED FALL, INITIAL ENCOUNTER Qualifiers: Encounter type: initial encounter Qualified Code(s): W19.XXXA - Unspecified fall, initial encounter (2) Laceration Code(s): RHW8890 - (3) SAH (subarachnoid hemorrhage) Code(s): I60.9 - NONTRAUMATIC SUBARACHNOID HEMORRHAGE, UNSPECIFIED Assessment/Plan Neuro checks For repeat Head CT DVT prophy w/ SCD Dr Woods
--- NOTE | 2018-08-19 13:30 | PN ---
Teaching Attending Note Name of Resident: Carlton Villanueva ATTENDING PHYSICIAN STATEMENT I saw and evaluated the patient. I reviewed the resident's note and discussed the case with the resident. I agree with the resident's findings and plan as documented. SUBJECTIVE: NO pain, no fever or chill, no PATEL , no weakness, no numbness , no dysuria or abd pain OBJECTIVE: NAD CV: RRR, no MRg lungs : CTAB Abd: soft, NT, ND , NL BS Ext : no edema Neuro : EOMI, no facial droop, round equal pupils, reactive to light . no facial droop. strength 5/5 in upper and lower extremities proximally and distally. sensation to light touch nl. reflexes 2+ knee jerk , BR, and biceps b /l A/P very pleasant 88 y/o lady with no sig PMH who presneted after a mechanical fall and was found to have R SAH 1- Mechanical fall 2- Acute R SAH . - repeat CT scan with stable small R SDH . neuro exam is till Nl - appreciate NS REcs 3- HTn urgency: resolved. BP improved - cont with norvasc after dc 4- Pyuria: no dysuria, or abd pain or flank pain. mild leukocytosis resolved without any treatment will not treat asymptomatic bacteruria ( lactose fermenting bacilli ) dc home . ambulating normally
--- NOTE | 2018-08-19 15:38 | DS ---
Physical Exam: SUBJECTIVE: Patient seen and examined. No acute events overnight. OBJECTIVE: Vital Signs Period Temp Pulse Resp BP Sys/Higgins Pulse Ox Last 24 Hr 97.9 F-98.7 F 54-75 14-24 104-165/49-69 96-97 PHYSICAL EXAM Comfortable, NAD. AAOx3. EOMI. FERNANDO. No facial droop. Lungs CTA B/L. No wheezes heard. RRR. Normal S1, S2. No murmurs heard. Abd soft NT/ND. +BS in all 4Qs. 5/5 muscle strength in u/l b/l extremities. Normal gait. Normal speech. LABS Laboratory Results - last 24 hr 08/18/18 08/19/18 15:14 05:15 WBC 6.8 RBC 4.29 Hgb 12.1 Hct 38.2 MCV 89.0 MCH 28.3 MCHC 31.8 L RDW 14.0 Plt Count 245 MPV 8.2 Absolute Neuts (auto) 3.6 Neutrophils % 52.1 D Lymphocytes % 34.1 D Monocytes % 10.5 H Eosinophils % 2.4 D Basophils % 0.9 Nucleated RBC % 0 Sodium 141 Potassium 3.8 Chloride 109 H Carbon Dioxide 26 Anion Gap 6 L BUN 14 Creatinine 0.8 Creat Clearance w eGFR > 60 Random Glucose 102 Calcium 9.0 HOSPITAL COURSE: Date of Admission:08/18/18 IMAGING: * Head CT (08/18/18): Small focus of acute R parieto-occipital SAH * CXR: No acute chest pathology * Head CT (08/19/18): Small R parieto-occipital SAH w/o gross interval change 88F with no sig PMH presented after a mechanical fall and was found to have R SAH on initial head CT. Upon neurosurg eval, pt was monitored in the ICU for [address] the next day did not show any progression in the SAH. Throughout hospital stay, pt was asymptomatic. She was advised to follow up with her pcp and neurosurg for outpatient follow up. Pt also was discharged home on Amlodipine to maintain BP control. Date of Discharge: 08/19/18 Minutes to complete discharge: 35 Discharge Summary Reason For Visit: LACERATION,SUBARSACHNOID HEMORRAGE,FALL Condition: Stable - Instructions Diet, Activity, Other Instructions: You were seen in the hospital after a fall. In the hospital, a head CT was done that showed a subarachnoid hemorrhage (a brain bleed) on right side . You were evaluated by the neurosurgeon and not found to need neurosurgical intervention. You were observed for 24 hours and another head CT was done that did not show progression. Throughout your hospital stay, you had no symptoms. You are being discharged home. MEDICAL RECOMMENDATIONS Please take Amlodipine 5 mg by mouth once a day to keep your blood pressure stable, this is important to prevent recurrent brain bleeding. - please check your blood pressure daily in morning. notify your doctor if > 150 /90 we sentprescription for blood pressure cuff to your pharmacy. take log to your PCP CONSULT RECOMMENDATIONS Please follow up with your primary care physician, Dr. Moreno, within 1 week. You will need to have your stitches removed within 1 week. Please follow up with your neurosurgeon, Dr. Arnold, within 1 week for follow up. If you experience persistent and worsening headaches, facial droop, slurred speech, visual changes, gait disturbances, difficulty with balance, chest pain, or shortness of breath, please proceed to your nearest emergency room immediately. Referrals: Castillo Arnold MD, [facility] [Staff Physician] - Kristina Moreno MD [Staff Physician] - 1 Week Disposition: HOME - Home Medications Comprehensive Discharge Medication List: Ambulatory Orders Glucosamine/Chondr Dalton A Sod [Osteo Bi-Flex Caplet] 2 each PO DAILY 09/24/16 Multivit-Min/Folic Acid/Biotin [Hair, Skin and Nails Caplet] 3 each PO DAILY Vitamin E 400 unit PO DAILY 09/24/16 Amlodipine Besylate [Norvasc -] 5 mg PO DAILY #30 tablet 08/19/18 Medical Supply, Miscellaneous [Blood Pressure Cuff] 1 each MC DAILY #1 each This patient is new to me today: Yes Date on this admission: 08/20/18 Emergency Visit: Yes ED Registration Date: 08/18/18 Care time: The patient presented to the Emergency Department on the above date and was hospitalized for further evaluation of their emergent condition. Critical Care patient: Yes Total Critical Care Time (in minutes): 40 Critical Care Statement: The care of this patient involved high complexity decision making to prevent further life threatening deterioration of the patient 's condition and/or to evaluate & treat vital organ system(s) failure or risk of failure. - Discharge Referral Referred to [facility] No
--- NOTE | 2018-08-19 16:05 | PN ---
Progress Note (short form) - Note Progress Note: Subjective Patient seen and examined at the bedside. No acute events overnight. Patient anticipating discharge. Objective Vital Signs Temperature 98.3 F 08/19/18 10:00 Pulse Rate 69 08/19/18 12:00 Respiratory Rate 16 08/19/18 12:00 Blood Pressure 165/69 08/19/18 12:00 O2 Sat by Pulse Oximetry (%) 96 08/19/18 08:03 General: Awake, alert, and fully oriented, in no acute distress Head: Repaired laceration on inferior aspect of lucas ~2.5cm Eyes: EOMI, sclera anicteric ENT: Moist mucus membranes Neck: Normal ROM, supple Lungs: Lungs clear, Normal breath sounds Cardio: Regular rhythm, S1 and S2 present Abdomen: Soft, nontender Extremities: Normal range of motion, Distal pulses present SKIN: Warm, Dry, normal turgor Neurologic: Cranial nerves II through XII grossly intact. Normal speech, sensation, strength, and coordination. Assessment 88yo F with PMH of HTN presenting after a fall and found to have small focus of R. parietal occipital SAH. Per neurosurg, admitted for neuro monitoring Plan Patient safe for transfer out of ICU Neuro -Neurochecks q4hr -Repeat Head CT: "without gross interval change" Heme -DVT ppx with SCDs Cardiology -HTN Urgency: resolved; patient normotensive
== END 2018-08-19 14:09 | disposition home or self-care (01) | DRG 86 ==
LOC: JER 01:47 → JERBED 05:42 → JICU 07:25
PROVIDERS: ADMIT Internal Medicine; ATTEND Internal Medicine
PROC: 0HQ1XZZ Repair Face Skin, External Approach (ICD-10-PCS; principal; 2018-08-18)
DX: S06.6X0A Traumatic subarachnoid hemorrhage without loss of consciousness, initial encounter (principal); N39.0 Urinary tract infection, site not specified; I16.0 Hypertensive urgency; S01.81XA Laceration without foreign body of other part of head, initial encounter; D72.829 Elevated white blood cell count, unspecified; W01.0XXA Fall on same level from slipping, tripping and stumbling without subsequent striking against object, initial encounter; Y93.89 Activity, other specified; Y92.098 Other place in other non-institutional residence as the place of occurrence of the external cause; Y99.8 Other external cause status
CPT/HCPCS: 36415; 70450-TC; 71045-TC-FY; 80048; 80053; 81003; 81015; 82550; 82553; 82962; 84484; 85025; 85027; 85610; 86850; 86900; 86901; 87086; 87186; 90715; 93005; 93010; 99284-25; J7030